=== PATIENT | female | born 1955 | race Caucasian/White ===

== ENCOUNTER → 2017-08-13 10:58 | Outpatient (CLI) | payer OTHER, SELFPAY ==
--- NOTE | 2017-08-13 11:03 | VDLE_ITS ---
Reason For Study: RT LEG PAIN RIGHT GSV is normal. CFV is compressible, spontaneous, phasic, competent and demonstrates normal augmentation. FV is compressible, spontaneous, phasic, competent and demonstrates normal augmentation. POP V is compressible, spontaneous, phasic, competent and demonstrates normal augmentation. T/P Trunk is compressible. PTV is compressible. RT PerV is compressible. Procedure Exam performed in department. A preliminary report was called and/or faxed to DR SANCHEZ. Interpretation Summary Deep veins of the right lower extremity are patent and compressible segmentally. There is no evidence of right lower extremity deep vein thrombosis. Valvular competence appears intact within the proximal deep venous system on the right . The right greater saphenous vein appears patent and compressible segmentally. Ordering Physician: Uma Sanchez Performed By: Thelma Walker, GALOCS, RVT
== END ==
PROVIDERS: Family Provider Internal Medicine; PCP Internal Medicine; Visit Provider Internal Medicine
DX: M79.604 Pain in right leg (principal)
CPT/HCPCS: 93971

== ENCOUNTER → 2017-10-12 10:06 | Outpatient (CLI) | payer OTHER, SELFPAY ==
--- NOTE | 2017-10-12 10:19 | MRI_ITS ---
STUDY: MRI RIGHT SHOULDER REASON FOR EXAM: Female, 61 years old. right anterior shoulder pain, pain started after doing push-ups, pain extends down arm TECHNIQUE: Standardized fat and water weighted pulse sequences were obtained in all 3 orthogonal planes. COMPARISON: None. FINDINGS: There is a complete tear of the supraspinatus tendon with proximal retraction of the torn tendon edge to the top of the humeral head. There is a 1.5 cm fluid-filled gap between the torn tendon edges. There is marked thickening of the supraspinatus tendon consistent with tendinosis. There is infraspinatus tendinosis with tendon thickening, but without a demonstrated tendon tear. There is subscapularis tendinosis with tendon thickening, but without a demonstrated tendon tear. Normal teres minor tendon. Normal supraspinatus muscle. Normal infraspinatus muscle. Normal subscapularis muscle. Normal teres minor muscle. There is a moderate volume joint effusion of the glenohumeral joint. There is a cortical erosion at the insertion of the infraspinatus tendon. Normal biceps labral complex. Normal intracapsular long biceps tendon. There are small tears of the posterior superior labrum and mid anterior labrum.. Normal capsulo- ligamentous complex. Normal rotator interval. There is mild osteoarthritis of the acromioclavicular articulation. There is a Type II morphology (curved), with a neutral orientation. There is fluid distention of the subacromial-subdeltoid bursa, which communicates with the glenohumeral joint, through a rotator cuff tear. Normal visualized coracohumeral and coracoacromial ligaments. Normal quadrilateral space. Normal axillary space. Normal deltoid muscle. Normal trapezius muscle. MRI/Upper Ext Joint Only(Routine) IMPRESSION: There is a complete tear of the supraspinatus tendon. There is supraspinatus, infraspinatus and subscapularis tendinosis. There is a moderate glenohumeral joint effusion. There are labral tears. Electronically Signed: Amber Mclean MD at 12:10 EDT , Service support ,
== END ==
PROVIDERS: Family Provider Internal Medicine; PCP Internal Medicine; Visit Provider Internal Medicine
DX: M25.511 Pain in right shoulder (principal)
CPT/HCPCS: 73221

== ENCOUNTER 2017-11-11 12:30 | Outpatient (RCR) | payer OTHER, SELFPAY ==
--- NOTE | 2017-08-24 14:00 | DT_ITS ---
This patient was seen during an EMR downtime August 23, 2017 - August 30, 2017. This patient may have a combination of paper and electronic documentation or all paper documentation. All documentation is viewable within the e-chart portion of [facility] for each patient visit.
--- NOTE | 2017-09-01 08:32 | HP.PTEVAL_ITS ---
Patient's Visit Information AMOR CUEVAS is a 61 year old F referred to Physical Therapy by Uma Sanchez with a diagnosis of R post leg pain. Date of Evaluation: 09/01/17 Physical Therapist: Sawyer Miller PT, - Visit Plan Frequency: 2-3x /Week Duration: 4-6 Weeks Plan: Foam roll, stick roll, core strengthening, B hip strengthening, balance/ proprio, R knee strengthening, bike, and HEP - Subjective Subjective: Pt reports she has R LE leg pain. PMHx includes a torn HS in R LE, and osteoporosis. Pt reports she has the most pain sitting for long periods of time, and with squatting. Pt denies T or N in LE's at this time. Pain is undescribeable. No imaging at this time. No sleep diff secondary to pain. Pt reports her major goal is to return to premorbid level of performing ADL's and work related activities. Pain is 4/10 currently, increases to 7/10 at worst. - Pain R post leg Pain Intensity (Out of 10): 4 Pain Intensity Range: 7 - Objective Neuro: B LE sensation is WNL to light touch. B achilles reflex= 2+/3. ROM: B LE 's are WNL. Pt is moderately limited with L/S ext ROM. MMT: B LE's 5/5 throughout. R knee flex was painful with testing. Palpation: Pt is sore with deep palpation to the post aspect of R knee. Special tests: No pos tests this date - Goals Goal 1:: I with HEP Goal Time Frame: 4-6 visits - Rehabilitation Potential Physical Therapy Diagnosis: Pt has pain in the posterior aspect of R knee secondary to deg changes in the R knee Rehabilitation Potential: Good - Anticipated Interventions Patient/Client Instruction: Educate patient on: Condition, Plan of Care For the Purpose of:: To improve self management Therapeutic Exercise to Include: Strength training, Balance training, Active ROM , Dynamic Lumbar Stabilization For the Purpose of:: To decrease pain, To improve muscle performance and motor function Cryotherapy (ice pack, ice massage): Yes For the Purpose of:: To decrease pain Thank you for the opportunity to evaluate your patient. For Medicare and Medicare HMO plans, please review the plan of care and approve it. It will need to be FAXED BACK to us at [phone] for Medicare purposes. Please let me know if there are questions or concerns regarding this plan of care. Physician Signature: Date:
--- NOTE | 2017-09-09 13:04 | HP.PTRE(2)_ITS ---
Uma Sanchez, It has been my pleasure to treat AMOR CUEVAS over the last 1 visits for R shoulder pain. Please see the progress note below for an update on the physical therapy plan of care! Plan Plan: Issue HEP of rot cuff strengthening and scap stab ex's Goals - Goals Goal 1:: I with HEP 1-2 visits Goal Time Frame: 1 Week Anticipated Interventions Patient/Client Instruction: Educate patient on: Condition, Plan of Care For the Purpose of:: To improve self management Therapeutic Exercise to Include: Strength training, Endurance training, Flexibilty training, Scapular Strength/Stabilization For the Purpose of:: To decrease pain, To increase ROM, To improve muscle performance and motor function Cryotherapy (ice pack, ice massage): Yes For the Purpose of:: To decrease pain Please do not hesitate to contact me at [phone] by phone or Fax: if you have questions or concerns regarding this new plan of care! Sincerely, Sawyer Miller, PT,
--- NOTE | 2018-02-09 12:58 | HP.PT.NRP ---
HP - Discharge Summary (1) - Patient Information AMOR CUEVAS was seen in my office for initial evaluation on 09/01/17. The following Plan of Care was established for this patient: Initial Frequency: 2-3x /Week Initial Duration: 4-6 Weeks - Anticipated Interventions Patient/Client Instruction: Educate patient on: Condition, Plan of Care For the Purpose of:: To improve self management Therapeutic Exercise to Include: Strength training, Balance training, Active ROM, Dynamic Lumbar Stabilization For the Purpose of:: To decrease pain, To improve muscle performance and motor function Cryotherapy (ice pack, ice massage): Yes For the Purpose of:: To decrease pain This patient was last seen in our office . Pertinent comments regarding their Physical therapy will appear below: Pt was treated for 3 PT visits for her LBP and shoulder pain. Pt has not returned through todays date, and is therefore discontinued at this time. At this point I will be discontinuing this patient from physical therapy. I would be happy to see this patient again in the future if found appropriate by the physician. Thank you! Sawyer Miller, PT,
--- NOTE | 2018-02-09 13:01 | HP.PT.NRP(2) ---
HP - Discharge Summary (2) - Patient Information AMOR CUEVAS was seen in my office for initial evaluation on 09/09/17. The following Plan of Care was established for this patient: Initial Frequency: 2x /Week Initial Duration: 1 Week Plan from Re-Evaluation: Hold chart open for 2-3 weeks - Anticipated Interventions Patient/Client Instruction: Educate patient on: Condition, Plan of Care For the Purpose of:: To improve self management Therapeutic Exercise to Include: Strength training, Endurance training, Flexibilty training, Scapular Strength/Stabilization For the Purpose of:: To decrease pain, To increase ROM, To improve muscle performance and motor function Cryotherapy (ice pack, ice massage): Yes For the Purpose of:: To decrease pain This patient was last seen in our office . Pertinent comments regarding their Physical therapy will appear below: Pt was treated for 3 PT visits for her LBP and shoulder pain. Pt has not returned through todays date, and is therefore discontinued at this time. At this point I will be discontinuing this patient from physical therapy. I would be happy to see this patient again in the future if found appropriate by the physician. Thank you! Sawyer Miller, PT,
== END 2017-11-11 19:00 | disposition home or self-care (01) ==
LOC: PT 12:30
PROVIDERS: Family Provider Internal Medicine; PCP Internal Medicine; Visit Provider Internal Medicine
DX: M79.604 Pain in right leg (principal)
CPT/HCPCS: 97110; 97162; 97530; G8978; G8979

== ENCOUNTER → 2018-08-09 | Outpatient (CLI) | payer SELFPAY ==
--- NOTE | 2018-08-09 14:30 | CT_ITS ---
STUDY: CARDIAC CALCIUM SCORING - CT CHEST REASON FOR EXAM: Female, 62 years old. HYPERLIPIDEMIA CALCIUM SCORING OVER READ RADIATION DOSAGE (If Supplied By Facility): CTDIvol = ( 12.19 ) mGy, DLP = ( 195.04 ) mGycm TECHNIQUE: Axial non-enhanced images were acquired through the heart for the sole purpose of measuring coronary artery calcium. Individualized dose optimization techniques were used for this CT. COMPARISON: None. FINDINGS: Visualized surrounding anatomy: Normal. Left Main Coronary Artery: 0 Left Anterior Descending Artery: 3.1 Left Circumflex Artery: 0 Right Coronary Artery: 0 Other: 0 Total Calcium Score: 3.1 CT/Limited Chest CT w/CCTA IMPRESSION: A Calcium Score of 3.1 places the patient in the approximate 59 percentile, based on the [employer] data calculator. Please go to: www.griffiths-nhlbi.org/Calcium/input.aspx , for a description of the calculator. Electronically Signed: Cooper Neil, at 6:38 EDT Tel , Service support ,
[2018-08-09 14:38] VITALS: BP 103/60; PULSE 59; RESP 16; O2SAT 99; BMI 20.6
--- NOTE | 2018-08-09 17:39 | CA.SCORE ---
Calcium Scoring Date of Study:: 08/09/18 Coronary Calcium Scoring: High-resolution Computed Tomographic imaging of the chest was performed on 08/09/2018 with particular attention paid to the coronary arteries. Images from the examination were analyzed for the presence and extent of coronary artery calcification , using coronary calcium quantification software. The patient tolerated the procedure well and there were no complications. The results of the coronary calcification analysis are provided below. - Findings Left Main (LM): 0 Left Anterior Descending (LAD): 3.18 Left Circumflex (LCX): 0 Right Coronary Artery (RCA): 0 Total Agatston Score: 3.18 Percentile Rankin - 50% of people of the same gender/similar age had the same/lower scores - Conclusion Calcium Scoring Interpretation: Calcium Score Interpretation 0 No identifiable atherosclerotic plaque. Very low cardiovascular disease risk. <5% chance of presence coronary artery disease A Negative Examination 1-10 Minimal Plaque burden. Significant coronary artery disease very unlikely. 11-100 Mild plaque burden. Likely mild or minimal coronary atherosclerosis. 101-400 Moderate plaque burden Moderate non-obstructive coronary artery disease highly likely. Over 400 Extensive plaque burden. High likelihood of at least one significant coronary stenosis (>50% diameter) Calcium Score: 1 -10 Significant coronary artery disease very unlikely - Continue cardiovascular risk factor evaluation care as deemed appropriate.
== END | disposition home or self-care (01) ==
LOC: CT 14:28
PROVIDERS: Family Provider Internal Medicine; PCP Internal Medicine; Referring Provider Internal Medicine; Visit Provider Internal Medicine
DX: E78.5 Hyperlipidemia, unspecified (principal)
CPT/HCPCS: 75571; 76380

== ENCOUNTER 2018-10-15 07:40 | Emergency (ER) | payer OTHER, SELFPAY ==
[2018-08-09 14:38] VITALS: BMI 20.6
[2018-10-15 07:41] VITALS: BP 148/93; PULSE 78; RESP 18; TEMP 36.6; O2SAT 100; BMI 20.6
--- NOTE | 2018-10-15 08:06 | RAD_ITS ---
STUDY: X-RAY - RIGHT FOOT CLINICAL: Female, 62 years old. Fall with bruising on top of foot. TECHNIQUE: 3 view(s) of the foot. COMPARISON: None. FINDINGS: Normal talus, calcaneus, and tarsal bones. Normal visualized subtalar, talonavicular, calcaneocuboid, tarsal and tarsometatarsal articulations. Normal metatarsi. Normal metatarsophalangeal joint of the great toe. Normal tibial and fibular sesamoid bones. Normal interphalangeal joint of the great toe. Normal phalanges of the great toe. Normal second through fifth metatarsophalangeal joints. Normal interphalangeal joints and phalanges of the lesser toes. The soft tissue structures are unremarkable. RAD/Foot min 3 Views IMPRESSION: No evidence of acute osseous process. Electronically Signed: Claude Granados DO at 8:47 EDT , Service support ,
--- NOTE | 2018-10-15 08:10 | ED.DCSUM_ITS ---
- ER Visit Summary Date of Service: 10/15/18 Chief Complaint: Right lateral foot pain post injury History of Present Illness: The patient is a 62 F history of osteoporosis. Patient states that she was caring dinner downstairs last night at home she tripped on the last step and landed awkwardly on her right foot causing pain and then fell to the ground. Denies any other injuries. Ice her foot last night is taken NSAIDs. But today is more pain and swelling and difficulty walking. She denies any ankle knee or hip pain. She did not hit her head denies other injuries. She is never had any surgery to her right ankle and the only foot surgery she has a still a distal phalanx of the toe. Physical Examination: Well-appearing female vital signs are stable and afebrile. HEENT exam is unremarkable. Neck is nontender. Lungs clear to auscultation bilaterally. Heart regular rate and rhythm no murmur. Chest wall nontender. Abdomen soft nontender. Pelvic girdle intact. Moving all 4 extremities. Neurovascularly intact. Both upper extremities have full range of motion, no rmal motor strength and sensation. Left lower extremities unremarkable. Her right hip, knee and ankle are nontender nonswollen. Her right lateral foot is mildly tender and swollen. Bruised. She is able to dorsi plantar flexion. Right foot neurovascular intact with normal DP pulse. Intact sensation. The right lateral foot is tender and swollen. No gross bony deformity. Test Results: Right foot x-ray 3 views shows no acute fracture or dislocation. Read by myself. Emergency Department Course and Treatment: X-ray of the right foot will be obtained. She has no other injuries. The ankle is completely nontender nonswollen with normal dorsi and plantar flexion. Repeat exam patient is doing well at 0 8:50 AM. She denied her over x- ray results. They were instructed that she is not improving to follow-up. Treatment Plan: Ice and elevate. Increase weightbearing as tolerated. Motrin for pain and swelling. Follow-up if not improving. Disposition: Discharge Impression: Acute fall Acute right foot sprain and contusion This note was generated with [employer] dictation software. It may contain incorrect words, spelling, and punctuation that were not noted in review of the chart prior to signing ED Disposition - Plan for ED Patient: Referrals: Uma Sanchez MD [Primary Care Provider] -
--- NOTE | 2018-10-15 08:53 | ED.DEP ---
ED Disposition - Plan for ED Patient: Disposition: Home or Assisted Living Instructions: Sprain Foot Referrals: Uma Sanchez MD [Primary Care Provider] - As Needed Zaki Feldman DPM [STAFF PHYSICIAN] - 10-14 Days if not better Additional Instructions: Ice and elevate right foot decrease pain and swelling. Motrin for pain and swelling. Increase weightbearing as tolerated. Follow-up with a violent crimes detective or local orthopedic doctor if not improving.
== END 2018-10-15 08:58 | disposition home or self-care (01) ==
PROVIDERS: Emergency Provider Emergency Medicine; Family Provider Internal Medicine; PCP Internal Medicine
DX: S93.601A Unspecified sprain of right foot, initial encounter (principal); S90.31XA Contusion of right foot, initial encounter; W01.0XXA Fall on same level from slipping, tripping and stumbling without subsequent striking against object, initial encounter; Y93.9 Activity, unspecified; Y92.9 Unspecified place or not applicable; M81.0 Age-related osteoporosis without current pathological fracture; Z85.41 Personal history of malignant neoplasm of cervix uteri
CPT/HCPCS: 73630; 99282

== ENCOUNTER → 2018-10-31 | Outpatient (CLI) | payer OTHER, SELFPAY ==
[2018-10-15 07:41] VITALS: BMI 20.6
--- NOTE | 2018-10-31 16:20 | RAD_ITS ---
STUDY: X-RAY - RIGHT ANKLE REASON FOR EXAM: Female, 62 years old. Trauma 2 weeks ago TECHNIQUE: 3 view(s) of the ankle. COMPARISON: None. FINDINGS: There is a possible fracture of the anterior calcaneal process, visualized with difficulty. There is a small ossicle along the posterior tibial malleolus, likely unfused. Otherwise the bones of the ankle are intact and located. Soft tissues are normal. RAD/Ankle min 3 Views IMPRESSION: Presumed fracture of the anterior calcaneal process, recommend confirmation with CT. Electronically Signed: Nanda Rosa, at 18:24 EDT Tel , Service support ,
--- NOTE | 2018-10-31 16:20 | RAD_ITS ---
STUDY: X-RAY - RIGHT FOOT CLINICAL: Female, 62 years old. Trauma TECHNIQUE: 3 view(s) of the foot. COMPARISON: 15 October 2018 FINDINGS: There is a subacute fracture of the anterior talar process with now approximately 3 mm displacement of the fracture fragment from the donor site. Remainder of the bones of the foot are intact and located. There is an unfused ossicle at the posterior tibial tuberosity. Soft tissues are unremarkable. Appearance is concordant with recent imaging at the time of the original injury. RAD/Foot min 3 Views IMPRESSION: 1. Subacute minimally displaced anterior talar process fracture. Orthopedic referral is advised. Electronically Signed: Nanda Rosa, at 17:29 EDT Tel , Service support ,
== END | disposition home or self-care (01) ==
LOC: MTRAD 16:19
PROVIDERS: Family Provider Internal Medicine; PCP Internal Medicine; Referring Provider Internal Medicine; Visit Provider Internal Medicine
DX: S93.401A Sprain of unspecified ligament of right ankle, initial encounter (principal)
CPT/HCPCS: 73610; 73630

== ENCOUNTER → 2018-12-05 13:00 | Outpatient (CLI) | payer OTHER, SELFPAY ==
[2018-12-05 13:16] VITALS: BP 156/80; PULSE 70; RESP 16; TEMP 36.4; O2SAT 100; BMI 20.5
[2018-12-05] MEDS: Zoledronic Acid 5 MG 100 ML 300 MG IV (13:24)
== END ==
PROVIDERS: Family Provider Internal Medicine; PCP Internal Medicine; Referring Provider Internal Medicine; Visit Provider Internal Medicine
DX: M81.0 Age-related osteoporosis without current pathological fracture (principal); M84.375A Stress fracture, left foot, initial encounter for fracture
CPT/HCPCS: 96365; A4216; J3489

== ENCOUNTER → 2019-03-07 10:47 | Outpatient (CLI) | payer OTHER, SELFPAY ==
[2018-12-05 13:16] VITALS: BMI 20.5
--- NOTE | 2019-03-07 10:58 | BD_ITS ---
STUDY: DUAL ENERGY X-RAY ABSORPTIOMETRY / DXA REASON FOR EXAM: Female, 63 years old. Early menopause. Loss of height. TECHNIQUE: Bone Mineral Density (BMD) measurements of lumbar spine and bilateral hips were obtained. COMPARISON: Comparison is made with prior examination dated March 02, 2017. FINDINGS: Lumbar Spine (L1-L4): g/cm2 (0.880) / T-score (-2.4) / Z-score (-0.9) Findings are suggestive of osteopenia with a high fracture risk. Left Femur Total: g/cm2 (0.853) / T-score (-1.2) / Z-score (-0.1) Left Femoral Neck: g/cm2 (0.826) / T-score (-1.5) / Z-score (-0.1) Right Femur Total: g/cm2 (0.790) / T-score (-1.7) / Z-score (-0.6) Right Femoral Neck: g/cm2 (0.763) / T-score (-2.0) / Z-score (-0.6) The T-Scores on the most recent prior examination were: Lumbar Spine (L1-L4): There has been improvement of bone density since the previous examination. Left Femur Total: which represents an improvement of 4%. Right Femur Total: which represents a worsening of 0.1%. BD/Dexa Bone Density Study IMPRESSION: The patient is considered osteopenic as outlined below according to World [employer] Organization (WHO) criteria with a high fracture risk. There has been improvement of bone density since the previous examination. Reference Information: The T-score is the number of standard deviations above or below the standard which is normal for young adults at their peak bone mineral density. The World Health Organization (WHO) interprets the T-scores as follows: Above -1 Normal bone density Between -1 and -2.5 Osteopenia Equal to / or below -2.5 Osteoporosis As a practical clinical guideline, osteopenia may be graded as follows: Mild -1 through -1.5 Moderate -1.6 through -2.0 Severe -2.1 through -2.4 The Z-score is the number of standard deviations above or below age-matched controls. A Z-score of less than -1.5 would be considered abnormal. References: 1. NIH Osteoporosis and Related Bone Diseases http://www.osteo.org 2. International Society for Clinical Densitometry http://www.iscd.org 3. National Osteoporosis Foundation http://www.nof.org Electronically Signed: David Abreu, at 15:43 EST , Service support ,
== END ==
PROVIDERS: Family Provider Internal Medicine; PCP Internal Medicine; Referring Provider Internal Medicine; Visit Provider Internal Medicine
DX: M81.0 Age-related osteoporosis without current pathological fracture (principal)
CPT/HCPCS: 77080

== ENCOUNTER → 2019-12-06 13:00 | Outpatient (CLI) | payer OTHER, SELFPAY ==
[2018-12-05 13:16] VITALS: BMI 20.5
[2019-12-06 13:17] VITALS: BP 138/85; PULSE 81; RESP 16; TEMP 35.9; O2SAT 100; BMI 21.1
[2019-12-06] MEDS: Zoledronic Acid 5 MG 100 ML 100 MG IV (13:33)
[2019-12-06] MEDS: 0.9% NaCl IVPB Med Flush (250 mL) 15 ML IV (13:34)
[2019-12-06] MEDS: 0.9% NaCl Peripheral Flush Adult/Peds IV (13:35)
[2019-12-06 14:50] VITALS: BP 132/85; PULSE 76; RESP 16; TEMP 36.1; O2SAT 100
== END ==
PROVIDERS: PCP Internal Medicine; Referring Provider Internal Medicine; Visit Provider Internal Medicine
DX: M81.0 Age-related osteoporosis without current pathological fracture (principal)
CPT/HCPCS: 96365; J7050; A4216; J3489

== ENCOUNTER → 2020-12-05 12:57 | Outpatient (CLI) | payer MEDICARE, BC, SELFPAY ==
[2019-12-06 13:17] VITALS: BMI 21.1
[2020-12-05] MEDS: Zoledronic Acid 5 MG 100 ML 100 MG IV (13:38)
[2020-12-05 13:39] VITALS: BP 156/67; PULSE 93; RESP 16; TEMP 35.9; O2SAT 100; BMI 21.2
[2020-12-05] MEDS: 0.9% NaCl Peripheral Flush Adult/Peds IV (13:39)
[2020-12-05 14:40] VITALS: BP 116/67; PULSE 74; RESP 16; TEMP 35.8; O2SAT 100
== END ==
PROVIDERS: PCP Internal Medicine; Referring Provider Internal Medicine; Visit Provider Internal Medicine
DX: M81.0 Age-related osteoporosis without current pathological fracture (principal)
CPT/HCPCS: 96365; A4216; J3489

== ENCOUNTER → 2020-12-10 17:00 | Outpatient (CLI) | payer MEDICARE, BC, SELFPAY ==
--- NOTE | 2020-12-10 17:13 | MRI_ITS ---
STUDY: MRI RIGHT KNEE REASON FOR EXAM: Female, 64 years old. Internal derangement. Pain. TECHNIQUE: Standardized fat and water weighted pulse sequences were obtained in all 3 orthogonal planes. COMPARISON: X-ray dated 08/08/2020. FINDINGS: Grade 3/4 cartilage loss at the patellar apex extending into the medial facet. Lateral compartment articular cartilage preserved. Medial compartment grade 3 cartilage loss with chondral fissure at the femoral condyle (sagittal image 32 series 3). No acute fracture, dislocation or cortical destruction. Bone marrow edema/contusion at the weightbearing portion of the medial compartment (sagittal images 18 and 19 series 4). Lateral meniscus intact. Medial meniscus posterior horn degenerative tearing (sagittal images 15 through 17 series 4 and coronal image 13 series 6). Tiny cyst at the origin of the medial meniscus anterior root ligament (sagittal image 14 series 4). Small volume joint effusion. No popliteal cyst. Mild anterior swelling. Normal medial collateral ligamentous complex (MCL). Normal distal semimembranosus, gracilis and semitendinosus tendons. Normal proximal tibiofibular articulation. Normal lateral collateral (fibular) ligament. Normal popliteus tendon. Normal biceps femoris tendon. Normal anterior cruciate ligament (ACL). Normal posterior cruciate ligament (PCL). Normal medial and lateral patellar retinaculum. Quadriceps tendon enthesophyte. Normal patellar tendon. Normal Hoffa''s fat pad. MRI/Lower Ext Joint Only (Routine) IMPRESSION: Medial meniscus degenerative posterior horn tear with tiny anterior root ligament cyst Moderate/severe medial facet and patellar apex cartilage loss Moderate medial compartment cartilage loss with chondral fissure and bone marrow edema Small volume joint effusion with mild anterior swelling Electronically Signed: Loyd Gillespie DO at 12:07 EDT Tel , Service support ,
== END ==
PROVIDERS: PCP Internal Medicine; Referring Provider Internal Medicine; Visit Provider Internal Medicine
DX: M23.91 Unspecified internal derangement of right knee (principal)
CPT/HCPCS: 73721

== ENCOUNTER → 2021-03-18 13:51 | Outpatient (CLI) | payer MEDICARE, BC, SELFPAY ==
--- NOTE | 2021-03-18 13:55 | RAD_ITS ---
STUDY: X-RAY - LEFT ANKLE REASON FOR EXAM: Female, 65 years old. left ankle pain after missing a stair TECHNIQUE: 3 view(s) of the ankle. COMPARISON: None. FINDINGS: Tiny avulsion fracture is present at the undersurface of the lateral malleolus with a minimally displaced crescentic bony fragment. No additional fractures are present. Normal visualized distal tibia and fibula. Normal medial malleolus. Normal tibiotalar articulation and ankle mortise. Normal visualized talus and calcaneus. The visualized subtalar, talonavicular, calcaneocuboid and tarsal articulations are normal. The soft tissue structures are unremarkable. RAD/Ankle min 3 Views IMPRESSION: 1. Tiny avulsion fracture at the undersurface of the lateral malleolus Electronically Signed: Ravinder Murphy MD at 16:07 EST , Service support ,
== END ==
PROVIDERS: PCP Internal Medicine; Referring Provider Internal Medicine; Visit Provider Internal Medicine
DX: M25.572 Pain in left ankle and joints of left foot (principal)
CPT/HCPCS: 73610

== ENCOUNTER 2021-03-26 09:50 | Outpatient (CLI) | payer MEDICARE, BC, SELFPAY ==
--- NOTE | 2021-03-26 09:59 | BD_ITS ---
STUDY: DUAL ENERGY X-RAY ABSORPTIOMETRY / DXA REASON FOR EXAM: Female, 65 years old. [id number]. The patient is postmenopausal. TECHNIQUE: Bone Mineral Density (BMD) measurements of lumbar spine and bilateral hips were obtained. COMPARISON: Comparison is made with prior study dated 03/07/2019. FINDINGS: Lumbar Spine (L1-L4): g/cm2 (0.857) / T-score (-1.7) / Z-score (0.1) Findings are suggestive of osteopenia with a moderate fracture risk. Left Femur Total: g/cm2 (0.799) / T-score (-1.2) / Z-score (0.1) Left Femoral Neck: g/cm2 (0.709) / T-score (-1.3) / Z-score (0.3) Right Femur Total: g/cm2 (0.731) / T-score (-1.7) / Z-score (-0.4) Right Femoral Neck: g/cm2 (0.632) / T-score (-2.0) / Z-score (-0.4) The T-Scores on the most recent prior examination were: Lumbar Spine (L1-L4): There has been improvement of bone density since the previous examination. Left Femur Total: which represents an improvement of 0.9%. Right Femur Total: which represents an improvement of 0.1%. BD/Dexa Bone Density Study IMPRESSION: The patient is considered osteopenic as outlined below according to World [employer] Organization (WHO) criteria with a moderate fracture risk. There has been improvement of bone density since the previous examination. Reference Information: The T-score is the number of standard deviations above or below the standard which is normal for young adults at their peak bone mineral density. The World Health Organization (WHO) interprets the T-scores as follows: Above -1 Normal bone density Between -1 and -2.5 Osteopenia Equal to / or below -2.5 Osteoporosis As a practical clinical guideline, osteopenia may be graded as follows: Mild -1 through -1.5 Moderate -1.6 through -2.0 Severe -2.1 through -2.4 The Z-score is the number of standard deviations above or below age-matched controls. A Z-score of less than -1.5 would be considered abnormal. References: 1. NIH Osteoporosis and Related Bone Diseases www osteo.org 2. International Society for Clinical Densitometry www iscd.org 3. National Osteoporosis Foundation www nof.org Electronically Signed: David Abreu MD at 8:58 EST , Service support ,
== END 2021-03-26 23:59 | disposition short-term general hospital (02) ==
LOC: OPBD 09:51
PROVIDERS: PCP Internal Medicine; Visit Provider Internal Medicine
DX: Z78.0 Asymptomatic menopausal state (principal)
CPT/HCPCS: 77080

== ENCOUNTER 2021-05-08 08:58 | Outpatient (CLI) | payer MEDICARE, BC, SELFPAY ==
[2021-05-08 10:08] LABS: Albumin, Serum 3.9 g/dL (3.2-5.0)
== END 2021-05-08 23:59 | disposition home or self-care (01) ==
LOC: LAB 09:07
PROVIDERS: PCP Internal Medicine; Referring Provider Physician Assistant Surgical; Visit Provider Physician Assistant Surgical
DX: Z01.818 Encounter for other preprocedural examination (principal)
CPT/HCPCS: 36415; 82040

== ENCOUNTER → 2021-12-05 | Outpatient (CLI) | payer MEDICARE, BC, SELFPAY ==
[2021-12-05 10:15] VITALS: BP 137/74; PULSE 78; RESP 16; TEMP 36.2; O2SAT 100; BMI 21.2
[2021-12-05] MEDS: Zoledronic Acid 5 MG 100 ML 100 MG IV (10:24)
[2021-12-05] MEDS: 0.9% NaCl IVPB Med Flush (250 mL) 15 ML IV (10:24)
[2021-12-05] MEDS: 0.9% NaCl Peripheral Flush Adult/Peds IV (10:24)
[2021-12-05 11:35] VITALS: BP 121/64; PULSE 72
== END | disposition home or self-care (01) ==
LOC: MEDOUTP 09:56
PROVIDERS: PCP Internal Medicine; Referring Provider Internal Medicine; Visit Provider Internal Medicine
DX: M81.0 Age-related osteoporosis without current pathological fracture (principal)
CPT/HCPCS: 96365; J7050; A4216; J3489

== ENCOUNTER → 2021-12-15 | Outpatient (CLI) | payer MEDICARE, BC, SELFPAY ==
--- NOTE | 2021-12-15 16:08 | RAD_ITS ---
EXAM: XR RIGHT HAND, 2 VIEWS CLINICAL INDICATION: THUMB PAIN TECHNIQUE: Frontal and lateral views of the right hand. This report was created using [employer] report generation technology. COMPARISON: None. FINDINGS: BONES/JOINTS: Osteoarthritic changes of the PIP and DIP joints of the second through fifth fingers. No acute fracture. No subluxation. Normal alignment. No sclerotic or destructive changes observed. SOFT TISSUES: Unremarkable. No soft tissue swelling or gas. No radiopaque foreign body. OTHER FINDINGS: Normal thumb. RAD/Hand 2 Views IMPRESSION: 1. Normal thumb. 2. Osteoarthritic changes of the PIP and DIP joints of the second through fifth fingers. Electronically Signed: Santiago Navas MD at 3:12 EDT ,
== END | disposition home or self-care (01) ==
LOC: MTRAD 16:07
PROVIDERS: PCP Internal Medicine; Referring Provider Internal Medicine; Visit Provider Internal Medicine
DX: M19.041 Primary osteoarthritis, right hand (principal)
CPT/HCPCS: 73120

== ENCOUNTER → 2022-01-20 | Outpatient (CLI) | payer MEDICARE, BC, SELFPAY ==
--- NOTE | 2022-01-20 12:50 | CDU_ITS ---
Reason For Study: STENOSIS Rt. Velocities/BP Lt. Velocities/BP Prox CCA 91.9/18.2 cm/sec. Prox CCA 99.7/21.2 cm/sec. Mid CCA 56.3/11.0 cm/sec. Mid CCA 83.3/15.7 cm/sec. Dist CCA 59.1/16.6 cm/sec. Dist CCA 66.8/15.7 cm/sec. Prox ICA 78.1/23.3 cm/sec. Prox ICA 58.2/17.6 cm/sec. Mid ICA 100.1/29.9 cm/sec. Mid ICA 76.1/16.6 cm/sec. Dist ICA 87.2/30.5 cm/sec. Dist ICA 88.8/32.1 cm/sec. Rt. ICA/CCA = 1.7. Lt. ICA/CCA = 0.7. Prox ECA 122.1/10.1 cm/sec. Prox ECA 79.6/8.4 cm/sec. Rt. Vert. 23.9/6.1 cm/sec. Lt. Vert. 45.9/11.0 cm/sec. Right Extracranial There is heterogeneous, irregular atherosclerotic plaque noted in the right common carotid artery. There is heterogeneous, irregular atherosclerotic plaque noted in the right internal carotid artery. There is heterogeneous, irregular atherosclerotic plaque noted in the right external carotid artery. Antegrade flow is noted in the right vertebral artery. Left Extracranial There is homogeneous, smooth atherosclerotic plaque noted in the left common carotid artery. There is heterogeneous, irregular atherosclerotic plaque noted in the left internal carotid artery. There is intimal thickening but no significant atherosclerotic plaque noted in the left external carotid artery. Antegrade flow is noted in the left vertebral artery. Procedure Carotid Duplex 46002. This is a Carotid Duplex examination using B-mode, color flow and specral Doppler. The exam was diagnostic. Exam performed in department. VL/Carotid Duplex Ultrasound Interpretation Summary Mild (<50%) stenosis right extracranial internal carotid. Mild (<50%) stenosis left extracranial internal carotid. Flow within the vertebral arteries is antegrade bilaterally. Ordering Physician: Uma Sanchez Referring Physician: Uma Sanchez Performed By: Naif Chapman RVT
== END | disposition home or self-care (01) ==
LOC: CVS 12:48
PROVIDERS: PCP Internal Medicine; Referring Provider Internal Medicine; Visit Provider Internal Medicine
DX: I65.23 Occlusion and stenosis of bilateral carotid arteries (principal)
CPT/HCPCS: 93880

== ENCOUNTER 2022-12-07 13:01 | Outpatient (CLI) | payer MEDICARE, BC, SELFPAY ==
[2022-12-07 13:06] VITALS: BP 160/98; RESP 16
[2022-12-07] MEDS: 0.9% NaCl Peripheral Flush Adult/Peds IV (13:16)
[2022-12-07] MEDS: Zoledronic Acid 5 MG 100 ML 100 MG IV (13:25)
[2022-12-07 14:25] VITALS: BP 138/95; PULSE 73; RESP 16; TEMP 36.2; O2SAT 99
== END 2022-12-07 13:02 | disposition home or self-care (01) ==
LOC: MEDOUTP 13:02
PROVIDERS: PCP Internal Medicine; Referring Provider Internal Medicine; Visit Provider Internal Medicine
DX: M81.8 Other osteoporosis without current pathological fracture (principal)
CPT/HCPCS: 96365; A4216; J3489

== ENCOUNTER → 2023-07-30 | Outpatient (CLI) | payer MEDICARE, BC, SELFPAY ==
--- NOTE | 2023-07-30 15:36 | MRI_ITS ---
HISTORY: foot pain, right, LATERAL, POSSIBLE METATARSAL FX Date: 07/30/2023 4:07 PM Technique: MRI examination obtained with multiplanar multi echo imaging. Location: RIGHT foot Contrast: No contrast administered Comparison: Plain film examination of 07/23/2023 FINDINGS: BONY ELEMENTS: 1. Bony elements have normal alignment. No displaced fractures identified. No marrow edema in the forefoot. 2. There is evidence however of marrow edema involving the cuboid, , anterior process of the calcaneus, portion of the plantar surface of the base of the 3rd metatarsal, and to a lesser extent the anterior process of talus. JOINT SPACES: 1. Normal appearance of alignment of bony elements and joint spaces. No joint effusion DEEP MUSCULAR COMPARTMENTS: 1. Deep muscular compartments are well-maintained. NEURAL VASCULAR COMPARTMENTS: 1. Normal appearance of the neural vascular compartments SUBCUTANEOUS SOFT TISSUES. 1. Normal appearance of visualized obtained soft tissues. No soft tissue stranding, fluid. No masses or abscess accumulation. MRI/Lower Ext/No Jt/w/o IMPRESSION: 1. No evidence of displaced fracture. 2. Marrow edema/bone bruising noted in the cuboid, anterior process of calcaneus, and a portion of the base of the 3rd metatarsal. 3. Joint spaces are maintained. Bony elements of the forefoot have normal appearance. Electronically Signed: Mehdi Brennan MD at 0:13 EDT ,
== END | disposition home or self-care (01) ==
LOC: MRI 15:32
PROVIDERS: PCP Internal Medicine; Referring Provider Internal Medicine; Visit Provider Internal Medicine
DX: M79.671 Pain in right foot (principal)
CPT/HCPCS: 73718

== ENCOUNTER → 2023-09-06 | Outpatient (CLI) | payer MEDICARE, BC, SELFPAY ==
--- NOTE | 2023-09-06 12:53 | CT_ITS ---
STUDY: CT CHEST WITH CONTRAST REASON FOR EXAM: Female, 67 years old. COUGH RADIATION DOSAGE (If Supplied By Facility): CTDIvol = ( 9.14 ) mGy, DLP = ( 198.48 ) mGycm TECHNIQUE: Transaxial imaging was performed following intravenous administration of IV 100mL Isovue-300. Multiplanar coronal and sagittal images were reformatted. Individualized dose optimization techniques were used for this CT. COMPARISON: No relevant priors. FINDINGS: CHEST Bilateral breast prostheses. Mild degree of increased markings at the lung apices slightly worse on the right side suggestive of bilateral apical scarring. No acute infiltration or mass lesion is seen. Hyperinflation. There is no demonstrated pleural abnormality. There are mild calcifications of the coronary arteries. Normal mediastinum. Normal hilar regions. Normal unenhanced pulmonary arteries. There is mild degree of atherosclerotic calcification of the aortic arch. There are degenerative changes of the thoracic spine. There is no demonstrated abnormality of the visualized upper abdomen. CT/Chest WITH Contrast IMPRESSION: There is evidence of a apical scarring. No acute abnormality is seen. Electronically Signed: David Abreu MD at 8:18 EDT ,
[2023-09-06 13:38] LABS: CREATININE FINGERSTICK < 1.0 mg/dL (0.55-1.02); EGFR FINGERSTICK > 60.0000 mL/min (>60)
== END | disposition home or self-care (01) ==
LOC: CT 12:48
PROVIDERS: PCP Internal Medicine; Referring Provider Internal Medicine; Visit Provider Internal Medicine
DX: R05.9 Cough, unspecified (principal)
CPT/HCPCS: 71260; Q9967; A4216

== ENCOUNTER → 2023-11-16 | Outpatient (CLI) | payer MEDICARE, BC, SELFPAY ==
--- NOTE | 2023-11-16 09:55 | CDU_ITS ---
Reason For Study: CAROTID STENOSIS Rt. Velocities/BP Lt. Velocities/BP Prox CCA 70.7/14.2 cm/sec. Prox CCA 96.5/19.2 cm/sec. Mid CCA 68.3/16.7 cm/sec. Mid CCA 89.1/24.1 cm/sec. Dist CCA 62.1/14.2 cm/sec. Dist CCA 74.4/21.6 cm/sec. Prox ICA 52.8/16.0 cm/sec. Prox ICA 44.0/14.7 cm/sec. Mid ICA 76.1/23.2 cm/sec. Mid ICA 71.4/19.5 cm/sec. Dist ICA 79.9/26.1 cm/sec. Dist ICA 91.3/31.8 cm/sec. Rt. ICA/CCA = 79.9/68.3=1.2. Lt. ICA/CCA = 91.3/89.1=1.0. Prox ECA 99.0/6.9 cm/sec. Prox ECA 69.5/9.3 cm/sec. Rt. Vert. 43.1/11.9 cm/sec. Lt. Vert. 63.9/15.7 cm/sec. Right Extracranial There is intimal thickening but no significant atherosclerotic plaque noted in the right common carotid artery. There is heterogeneous, irregular atherosclerotic plaque noted in the right internal carotid artery. There is intimal thickening but no significant atherosclerotic plaque noted in the right external carotid artery. Antegrade flow is noted in the right vertebral artery. Left Extracranial There is heterogeneous, smooth atherosclerotic plaque noted in the left common carotid artery. There is heterogeneous, irregular atherosclerotic plaque noted in the left internal carotid artery. There is heterogeneous, smooth atherosclerotic plaque noted in the left external carotid artery. Antegrade flow is noted in the left vertebral artery. Procedure Carotid Duplex 63171. This is a Carotid Duplex examination using B-mode, color flow and specral Doppler. Exam performed in department. VL/Carotid Duplex Ultrasound Interpretation Summary Mild (<50%) stenosis right extracranial internal carotid. Mild (<50%) stenosis left extracranial internal carotid. Patent and antegrade vertebrals bilaterally. Ordering Physician: Uma Sanchez Referring Physician: Uma Sanchez Performed By: Gay Brown, IAN, RVT
--- NOTE | 2023-11-16 11:00 | BD_ITS ---
STUDY: DUAL ENERGY X-RAY ABSORPTIOMETRY / DXA REASON FOR EXAM: Female, 67 years old. [id number] TECHNIQUE: Bone Mineral Density (BMD) measurements of lumbar spine and bilateral hips were obtained. COMPARISON: Comparison is made with prior study dated March 26, 2021. FINDINGS: Lumbar Spine (L1-L4): g/cm2 (0.843) / T-score (-1.9) / Z-score (0.2) Findings are suggestive of osteopenia with a moderate fracture risk. Left Femur Total: g/cm2 (0.791) / T-score (-1.2) / Z-score (0.2) Left Femoral Neck: g/cm2 (0.693) / T-score (-1.4) / Z-score (0.3) Right Femur Total: g/cm2 (0.725) / T-score (-1.8) / Z-score (-0.3) Right Femoral Neck: g/cm2 (0.617) / T-score (-2.1) / Z-score (-0.4) The T-Scores on the most recent prior examination were: Lumbar Spine (L1-L4): There has been worsening of bone density since the previous examination. Left Femur Total: which represents a worsening of 0.9%. Right Femur Total: which represents a worsening of 0.8%. BD/Dexa Bone Density Study IMPRESSION: The patient is considered osteopenic as outlined below according to [employer] [place] Organization (WHO) criteria with a high fracture risk. There has been worsening of bone density since the previous examination. Reference Information: The T-score is the number of standard deviations above or below the standard which is normal for young adults at their peak bone mineral density. The World Health Organization (WHO) interprets the T-scores as follows: Above -1 Normal bone density Between -1 and -2.5 Osteopenia Equal to / or below -2.5 Osteoporosis As a practical clinical guideline, osteopenia may be graded as follows: Mild -1 through -1.5 Moderate -1.6 through -2.0 Severe -2.1 through -2.4 The Z-score is the number of standard deviations above or below age-matched controls. A Z-score of less than -1.5 would be considered abnormal. References: 1. NIH Osteoporosis and Related Bone Diseases www osteo.org 2. International Society for Clinical Densitometry www iscd.org 3. National Osteoporosis Foundation www nof.org Electronically Signed: David Abreu MD at 10:12 EDT ,
== END | disposition home or self-care (01) ==
PROVIDERS: PCP Internal Medicine; Referring Provider Internal Medicine; Visit Provider Internal Medicine
DX: I65.23 Occlusion and stenosis of bilateral carotid arteries (principal); Z78.0 Asymptomatic menopausal state
CPT/HCPCS: 77080; 93880

== ENCOUNTER 2023-12-06 10:24 | Outpatient (CLI) | payer MEDICARE, BC, SELFPAY ==
[2023-12-06 10:39] VITALS: BP 145/66; PULSE 77; RESP 16; TEMP 36.2; O2SAT 99; BMI 21.3
[2023-12-06] MEDS: Zoledronic Acid 5 MG 100 ML 100 MG IV (11:04)
[2023-12-06] MEDS: 0.9% NaCl IVPB Med Flush (250 mL) 15 ML IV (11:04)
[2023-12-06 12:22] VITALS: BP 152/86; PULSE 68; RESP 16; TEMP 36.6; O2SAT 99
== END 2023-12-06 23:59 | disposition home or self-care (01) ==
LOC: MEDOUTP 10:24
PROVIDERS: PCP Internal Medicine; Referring Provider Internal Medicine; Visit Provider Internal Medicine
DX: M81.0 Age-related osteoporosis without current pathological fracture (principal)
CPT/HCPCS: 96365; J7050; A4216; J3489

== ENCOUNTER 2024-05-21 13:24 | Emergency (ER) | payer MEDICARE, BC, SELFPAY ==
[2024-05-21 13:25] VITALS: BP 178/162; PULSE 91; RESP 18; TEMP 36.4; O2SAT 100; BMI 22.3
--- NOTE | 2024-05-21 14:00 | EKG12_ITS ---
Test Reason : GENERAL Blood Pressure : */* mmHG Vent. Rate : 72 BPM Atrial Rate : 72 BPM P-R Int : 160 ms QRS Dur : 94 ms QT Int : 384 ms P-R-T Axes : 71 42 71 degrees QTcB Int : 420 ms Normal sinus rhythm Normal ECG Confirmed by Santiago Robertson ([id number]), video tape editor SAGAR ISRAEL ([id number]) on 05/23/2024 10:44:28 AM Referred By: Confirmed By: Santiago Robertson
--- NOTE | 2024-05-21 14:00 | EX.ED.DYSGE1 ---
HPI History of Present Illness Chief Complaint: Hypertension Narrative Narrative: 68-year-old female, no history of hypertension, not on medication presents with elevated blood pressure that she noticed today. She does relate history that on Wednesday she was seen by her primary care provider Dr. Sanchez, and she had elevated blood pressure. She remains asymptomatic with it. On , 3 days ago, she was getting a cortisone injection as she had slightly elevated blood pressure as well. She received the injection and had not had 1 in 7 years for her right rotator cuff problem. The following day, she felt flushed, and took her blood pressure. She has noticed a steady increase in her blood pressure where it was elevated at 170 systolic. She denies any chest pain or shortness of breath, no headache, no difficulty with urination. While she was at home, they noticed that her blood pressure was elevated at 190. She thought maybe there was something wrong with her blood pressure machine and she changed the batteries. She went to the pharmacy as well, and took it there and it was elevated above 200. They waited a while and the pharmacist took her blood pressure and it was noted to be 220 systolic. Once again she remained asymptomatic but came to the emergency department for evaluation of her elevated blood pressure. Of note, she states that she has been under some stress recently with the recent of her mother, but no excessive stress today that she noted. [facility] Medical History no medical history Home Medications ?Medication ?Instructions ?Recorded ?Last Taken ?Type cholecalciferol (vitamin D3) 25 2,000 unit PO DAILY 06/07/15 Unknown History mcg (1,000 unit) tablet (Vitamin D3) biotin 1 mg capsule 1 mg PO DAILY 12/06/23 Unknown History ezetimibe 10 mg tablet 10 mg PO DAILY 12/06/23 Unknown History valacyclovir 1 gram tablet 1,000 mg PO BID PRN cold sores 12/06/23 Unknown History amlodipine 5 mg tablet 5 mg PO DAILY #30 tabs 05/21/24 Unknown Rx Allergy/AdvReac Type Severity Reaction Status Date / Time No Known Allergies Allergy Verified 05/21/24 13:29 Social History Smoking Status: Never smoker ROS ROS ED ROS Narrative Elevated blood pressure. Denies chest pain, shortness of breath, problems with urination, or other symptoms. No blurry vision. EXAM Physical Exam Narrative Exam Narrative: Afebrile. Vital signs noted. Nontoxic-appearing. Cardiovascular examination reveals a regular rate and rhythm. Lungs are clear to auscultation bilaterally. Abdomen is soft, nontender, with normal active bowel sounds. No guarding or rebound. Neurological examination is nonfocal and nonlateralizing. Psychiatric examination reveals no evidence of anxiety. Const Vital Signs: 05/21/24 13:25 05/21/24 13:32 05/21/24 14:27 Temperature 97.5 F L Temperature Source Oral Pulse Rate 91 75 Respiratory Rate 18 18 Respiratory Effort Normal Non-Labored Respiratory Pattern Normal Blood Pressure 178/162 H 166/95 H Blood Pressure Mean 167 118 Pulse Ox 100 99 Oxygen Delivery Method Room Air Room Air 05/21/24 15:13 Temperature Temperature Source Pulse Rate Respiratory Rate Respiratory Effort Respiratory Pattern Blood Pressure 176/93 H Blood Pressure Mean 120 Pulse Ox Oxygen Delivery Method MDM MDM MDM Narrative Medical decision making narrative: Essentially, patient is having asymptomatic hypertension. Her blood pressure is below 200 systolic and is currently 180. I will obtain an EKG as well as basic laboratory work including CBC and CMP. I do not feel she needs a troponin as it is high-sensitivity and she is not having chest pain. Pulse ox is 100% on room air without evidence of hypoxia. I doubt pulmonary embolism and I do not feel that chest x-ray is indicated. EKG was obtained and interpreted by myself independently as normal sinus rhythm at 72 bpm without ectopy or acute ST changes. No STEMI. I reviewed her laboratory work and she has normal white count of 8.1 with hemoglobin 14.3, hematocrit 41.5, platelet count 331. Sodium is slightly low at 131 with chloride 94. I do not feel IV fluids are indicated as she has normal BUN of 19 and creatinine 0.71. ALT slightly elevated at 37 which I think is nonspecific. Upon repeat examination, her blood pressure is 176/93 without intervention. I do feel that she can be discharged to follow-up with her primary care provider. She was given her first dose of amlodipine 5 mg orally here as she remains asymptomatic. I wrote her prescription to take daily for the next 30 days. I reviewed return instructions with her. Disposition is discharged home in stable condition. History & Record Review Discussion w/independent historian: Patient Lab Data Attestation: I reviewed the patient's lab results. Labs: Laboratory Results - last 24 hr 05/21/24 13:15 WBC 8.1 RBC 4.41 Hgb 14.3 Hct 41.5 MCV 94.1 MCH 32.4 H MCHC 34.5 RDW Std Deviation 46.6 H RDW Coeff of Heavenly 13.5 Plt Count 331 MPV 10.2 Immature Gran % (Auto) 0.400 Neut % (Auto) 68.2 Lymph % (Auto) 22.3 [place] % (Auto) 8.4 Eos % (Auto) 0.5 Baso % (Auto) 0.2 Absolute Neuts (auto) 5.5 Absolute Lymphs (auto) 1.81 Nucleated RBC % 0 Sodium 131 L Potassium 3.8 Chloride Direct 94 L Carbon Dioxide 21.2 L Anion Gap 16 H BUN 19 Creatinine 0.71 Estim Creat Clear Calc 59.72 Est GFR (MDRD) Non-Af 92 BUN/Creatinine Ratio 26.7 H Glucose 123 H Calcium 9.6 Total Bilirubin 0.56 AST 26 ALT 37 H Alkaline Phosphatase 59 Total Protein 8.1 Albumin 4.9 H Globulin 3.2 Albumin/Globulin Ratio 1.6 Discharge Plan Triage Chief Complaint: Hypertension ED Provider: Lane Cornelius Dx/Rx/DC Orders Clinical Impression: Elevated blood pressure reading, Hyponatremia Instructions: ED Hypertension New Begin Treatment, ED Hyponatremia Prescriptions: New amlodipine 5 mg tablet 5 mg PO DAILY Qty: 30 0RF No Action cholecalciferol (vitamin D3) [Vitamin D3] 1,000 UNIT tablet 2,000 unit PO DAILY ezetimibe 10 mg tablet 10 mg PO DAILY biotin 1 mg capsule 1 mg PO DAILY valacyclovir 1 gram tablet 1,000 mg PO BID PRN (Reason: cold sores) Primary Care Provider: Uma Sanchez Referrals: Uma Sanchez MD [Primary Care Provider] - 3-5 Days if not improving Activity Restrictions/Additional Instructions: Take your blood pressure once in the morning and once in the evening. Keep a log of your blood pressure for your primary care provider. Return with chest pain, shortness of breath, headache, dizziness, consistent Ly elevated blood pressure over 200 systolic new or worsening symptoms. Print Language: Kittitian Disposition Disposition: Home, Self Care
[2024-05-21 14:23] LABS: Absolute Lymphocyte Count 1.81 X10^3/uL (0.83-4.51); Absolute Neutrophil Count 5.5 X10^3/uL (2.0-7.7); Basophil# 0.02 X10^3/uL; Basophil% 0.2 % (0-1); Eosinophil# 0.04 X10^3/uL; Eosinophils% 0.5 % (0-5); Hematocrit 41.5 % (37-47); Hemoglobin 14.3 g/dL (12.0-15.0); Lymphocyte # 1.81 X10^3/ul (0.83-4.51); Lymphocyte % 22.3 % (19-41); Mean Corp Hgb Conc 34.5 g/dL (32-36); Mean Corpuscular Hgb 32.4 pg (27.0-32.0); Mean Corpuscular Volume 94.1 fL (81-99); Mean Platelet Vol. 10.2 fl (6.2-12.0); Monocyte# 0.68 X10^3/uL; Monocyte% 8.4 % (0-10); NRBC Flagged by Analyzer 0 % (0-5); Neutrophil # 5.52 X10^3/uL (2.7-7.7); Neutrophil % 68.2 % (47-70); Platelet Count 331 K/mm3 (150-450); RBC Distribution Width CV 13.5 % (11.6-14.6); RBC Distribution Width SD 46.6 fl (35.1-43.9); Red Blood Count 4.41 M/mm3 (4.2-5.4); White Blood Count 8.1 K/mm3 (4.4-11.0)
[2024-05-21 14:27] VITALS: BP 166/95; PULSE 75; RESP 18; O2SAT 99
[2024-05-21 15:08] LABS: ALB/GLOB Ratio 1.6 RATIO (0.9-2.4); AST(SGOT) 26 U/L (<=31); Alanine Aminotransfer ALT/SGPT 37 U/L (<=34); Albumin, Serum 4.9 g/dL (3.4-4.8); Alkaline Phosphatase 59 U/L (35-104); Anion Gap 16 (5-15); BUN 19 mg/dL (4-19); BUN/Creat Ratio 26.7 RATIO (10-20); Calcium 9.6 mg/dL (7.6-11.0); Carbon Dioxide 21.2 mmol/L (22.0-29.0); Chloride 94 mmol/L (96-108); Creatinine, Serum 0.71 mg/dL (0.70-1.20); EST Glomerular Filtration Rate 92 (>60); Estimated Creatinine Clearance 59.72 ml/min (50-250); Globulin 3.2 g/dL (2.2-4.2); Glucose 123 mg/dL (70-99); Potassium 3.8 mmol/L (3.3-5.1); Protein, Total 8.1 g/dL (5.9-8.4); Sodium Level 131 mmol/L (133-145); Total Bilirubin 0.56 mg/dL (0.00-1.30)
[2024-05-21 15:13] VITALS: BP 176/93
[2024-05-21] MEDS: amLODIPine 5 MG Tablet PO (15:33)
[2024-05-21 15:44] VITALS: BP 175/91; PULSE 78; RESP 16; TEMP 36.6; O2SAT 99
== END 2024-05-21 15:45 | disposition home or self-care (01) ==
PROVIDERS: Emergency Provider Emergency Medicine; PCP Internal Medicine; Visit Provider Emergency Medicine
DX: R03.0 Elevated blood-pressure reading, without diagnosis of hypertension (principal); E87.1 Hypo-osmolality and hyponatremia; Z79.899 Other long term (current) drug therapy
CPT/HCPCS: 80053; 85025; 93005; 99285

== ENCOUNTER → 2024-11-22 | Outpatient (CLI) | payer MEDICARE, BC, SELFPAY ==
--- NOTE | 2024-11-22 11:23 | SP.MBSS_ITS ---
Modified Barium Swallow Patient Information Study Date: 11/22/24 Study Time: 10:30 Direct Billable Minutes: 150 Total Minutes procedure & reportin Diagnosis: dysphagia, unspecified R13.10 Referring Physician: Loyd Al Reason for Referral: Patient is a 68-year-old female with a history of chronic cough. She was referred for a Modified Barium Swallow Study (MBSS) to objectively assess swallow function. The patient reports that the cough occurs both with and without oral intake, is present throughout the day, and has significantly impacted her quality of life. She has been evaluated by multiple physicians, including primary care, ENT, and internal medicine, and has trialed medications such as proton pump inhibitors and allergy treatments (per patient report) without improvement. Dentition: WNL Mental Status: WNL Respiratory Status: Oxygenating on Room Air Penetration-Aspiration Scale Penetration-Aspiration Scale: OBJECTIVE ASSESSMENT OF SWALLOW FUNCTION (QUANTITATIVE ? PER TRIAL): PENETRATION / ASPIRATION SCALE (SANCHEZ): 1 = does not enter airway 2 = enters airway/above vocal folds/ejected 3 = enters airway/above vocal folds/not ejected 4 = enters airway/contacts vocal folds/ejected 5 = enters airway/contacts vocal folds/not ejected 6 = enters airway/below vocal folds/ejected 7 = enters airway/below vocal folds/not ejected despite effort 8 = enters airway/below vocal folds/no effort VIDEOFLOROSCOPIC SCALE SCORE (SANCHEZ): Grade I = aspiration of material that has penetrated into the laryngeal vestibule, intact cough reflex Grade II = aspiration < 10 % of the bolus, intact cough reflex Grade III = aspiration of < 10 % of the bolus, reduced cough reflex or aspiration of > 10 % of the bolus, intact cough reflex Grade IV = aspiration of > 10 % of the bolus, reduced cough reflex Penetration-Aspiration Scale Score Thin Liquid via teaspoon: Result: 1= does not enter airway Thin Liquid via teaspoon Trial 2: Result: 1= does not enter airway Thin Liquid via small single sip: cup: Result: 1= does not enter airway Thin Liquid via small single sip: cup Trial 2: Result: 1= does not enter airway Thin Liquid via small single sip: cup Trial 3: Result: 1= does not enter airway [place] Thick Liquid via small single sip: cup: Result: 1= does not enter airway Pudding: Result: 1= does not enter airway Cookie: Result: 1= does not enter airway Barium Tablet: Result: 1= does not enter airway Oral Phase Labial Seal: No Labial Escape Tongue Control During Bolus Hold: Cohesive bolus between tongue to palatal seal Bolus Preparation/Mastication: Timely and efficient chewing and mashing Bolus Transport/Lingual Motion: Delayed initiation of tongue motion Oral Residue: Complete oral clearance Pharyngeal Phase Initiation of Pharyngeal Swallow: Bolus head in pyriforms Soft Palate Elevation: No bolus between soft palate and pharyngeal wall Laryngeal Elevation: Comp. Superior move thyroid cart w/comp. apprx arytenoid cart-epig pet Anterior Hyoid Excursion: Complete anterior movement Epiglottic Movement: Complete inversion Laryngeal Vestibule Closure at Height of Swallow: Complete; no air/contrast in laryngeal vestibule Pharyngeal Stripping Wave: Present - complete Pharyngoesophageal Segment Opening: Complete distension and complete duration; no obstruction of flow Tongue Base Retraction: No contrast between tongue base and posterior pharyngeal wall Pharyngeal Residue: Trace residue within or on pharyngeal structures Esophageal Phase Esophageal Clearance: Esophageal retention w/ retrograde flow through pharyngoesophageal seg Diagnosis/Impression Diagnosis: Esophageal dysphagia R13.14 .: The patient presents with esophageal dysphagia characterized by reduced UES opening and residue within the pyriform sinuses following the swallow. She is at high risk for post-prandial aspiration of residual material and/or reflux. Esophageal motility is impaired, with retention and retrograde flow observed even with thin liquids, and more pronounced with thicker consistencies such as pudding. Retention was noted in the upper and mid-esophagus with minimal improvement following a liquid wash, and retrograde flow through the UES was also observed. In addition, the patient demonstrated difficulty with AP transit, as the barium tablet required multiple sips of water to clear. Overall, these findings are highly suggestive of esophageal reflux, which may be contributing to the patient?s chronic cough. A follow-up with gastroenterology is recommended for further evaluation and management. Recommendations Diet: Regular Textures and Thin Liquids Compensatory Strategies: Small Bites, Small Sips, Slow Rate, Multiple Swallows, Alternate bites/solids and sips/liquids, Sitting upright and Remain sitting upri ght for 30 minutes after PO intake Recommend Repeat Modified Barium Swallow: TBD Need for Skilled Speech Therapy Services: No Recommended Referrals: GI Consult Education Completed: 1. Described result of evaluation. and 2. Pt understands evaluation & agrees with goals and treatment plan. Status Active ST Patient: Active Contact Information [facility] Speech Therapy:: Sheri Baumann M.A., CCC-BLISTER PACKAGING MACHINE OPERATOR Speech-Language Pathologist [facility] [phone] FAX [phone] [email or web address] [address]
== END | disposition home or self-care (01) ==
PROVIDERS: PCP Internal Medicine; Referring Provider Otolaryngology; Visit Provider Otolaryngology
DX: R05.3 Chronic cough (principal)
CPT/HCPCS: 74230; 92611

== ENCOUNTER 2024-12-08 10:06 | Outpatient (CLI) | payer MEDICARE, BC, SELFPAY ==
[2024-12-08 10:22] VITALS: BP 129/70; PULSE 69; RESP 16; TEMP 36.4; O2SAT 100; BMI 21.9
== END 2024-12-08 23:59 | disposition home or self-care (01) ==
LOC: MEDOUTP 10:07
PROVIDERS: PCP Internal Medicine; Referring Provider Internal Medicine; Visit Provider Internal Medicine
DX: M81.0 Age-related osteoporosis without current pathological fracture (principal)
CPT/HCPCS: 96365; A4216; J3489

== ENCOUNTER 2024-12-13 08:30 | Outpatient (RCR) | payer MEDICARE, BC, SELFPAY ==
--- NOTE | 2024-12-08 11:28 | ST ---
[facility] Speech Pathology [address] [place] [address] Modified Barium Swallow Study MR#: [id number] Acct: [id number] Name: AMOR CUEVAS Rep #: [id number] : 1955 68 From: Sheri Bauamnn Modified Barium Swallow Patient Information Study Date: 11/22/24 Study Time: 10:30 Direct Billable Minutes: 150 Total Minutes procedure & reportin Diagnosis: dysphagia, unspecified R13.10 Referring Physician: Loyd Al Reason for Referral: Patient is a 68-year-old female with a history of chronic cough. She was referred for a Modified Barium Swallow Study (MBSS) to objectively assess swallow function. The patient reports that the cough occurs both with and without oral intake, is present throughout the day, and has significantly impacted her quality of life. She has been evaluated by multiple physicians, including primary care, ENT, and internal medicine, and has trialed medications such as proton pump inhibitors and allergy treatments (per patient report) without improvement. Dentition: WNL Mental Status: WNL Respiratory Status: Oxygenating on Room Air Penetration-Aspiration Scale Penetration-Aspiration Scale: OBJECTIVE ASSESSMENT OF SWALLOW FUNCTION (QUANTITATIVE ? PER TRIAL): PENETRATION / ASPIRATION SCALE (SANCHEZ): 1 = does not enter airway 2 = enters airway/above vocal folds/ejected 3 = enters airway/above vocal folds/not ejected 4 = enters airway/contacts vocal folds/ejected 5 = enters airway/contacts vocal folds/not ejected 6 = enters airway/below vocal folds/ejected 7 = enters airway/below vocal folds/not ejected despite effort 8 = enters airway/below vocal folds/no effort VIDEOFLOROSCOPIC SCALE SCORE (SANCHEZ): Grade I = aspiration of material that has penetrated into the laryngeal vestibule, intact cough reflex Grade II = aspiration < 10 % of the bolus, intact cough reflex Grade III = aspiration of < 10 % of the bolus, reduced cough reflex or aspiration of > 10 % of the bolus, intact cough reflex Grade IV = aspiration of > 10 % of the bolus, reduced cough reflex Penetration-Aspiration Scale Score Thin Liquid via teaspoon: Result: 1= does not enter airway Thin Liquid via teaspoon Trial 2: Result: 1= does not enter airway Thin Liquid via small single sip: cup: Result: 1= does not enter airway Thin Liquid via small single sip: cup Trial 2: Result: 1= does not enter airway Thin Liquid via small single sip: cup Trial 3: Result: 1= does not enter airway [place] Thick Liquid via small single sip: cup: Result: 1= does not enter airway Pudding: Result: 1= does not enter airway Cookie: Result: 1= does not enter airway Barium Tablet: Result: 1= does not enter airway Oral Phase Labial Seal: No Labial Escape Tongue Control During Bolus Hold: Cohesive bolus between tongue to palatal seal Bolus Preparation/Mastication: Timely and efficient chewing and mashing Bolus Transport/Lingual Motion: Delayed initiation of tongue motion Oral Residue: Complete oral clearance Pharyngeal Phase Initiation of Pharyngeal Swallow: Bolus head in pyriforms Soft Palate Elevation: No bolus between soft palate and pharyngeal wall Laryngeal Elevation: Comp. Superior move thyroid cart w/comp. apprx arytenoid cart-epig pet Anterior Hyoid Excursion: Complete anterior movement Epiglottic Movement: Complete inversion Laryngeal Vestibule Closure at Height of Swallow: Complete; no air/contrast in laryngeal vestibule Pharyngeal Stripping Wave: Present - complete Pharyngoesophageal Segment Opening: Complete distension and complete duration; no obstruction of flow Tongue Base Retraction: No contrast between tongue base and posterior pharyngeal wall Pharyngeal Residue: Trace residue within or on pharyngeal structures Esophageal Phase Esophageal Clearance: Esophageal retention w/ retrograde flow through pharyngoesophageal seg Diagnosis/Impression Diagnosis: Esophageal dysphagia R13.14 The patient presents with esophageal dysphagia characterized by reduced UES opening and residue within the pyriform sinuses following the swallow. She is at high risk for post-prandial aspiration of residual material and/or reflux. Esophageal motility is impaired, with retention and retrograde flow observed even with thin liquids, and more pronounced with thicker consistencies such as pudding. Retention was noted in the upper and mid-esophagus with minimal improvement following a liquid wash, and retrograde flow through the UES was also observed. In addition, the patient demonstrated difficulty with AP transit, as the barium tablet required multiple sips of water to clear. Overall, these findings are highly suggestive of esophageal reflux, which may be contributing to the patient?s chronic cough. A follow-up with gastroenterology is recommended for further evaluation and management. Recommendations Diet: Regular Textures and Thin Liquids Compensatory Strategies: Small Bites, Small Sips, Slow Rate, Multiple Swallows, Alternate bites/solids and sips/liquids, Sitting upright and Remain sitting upright for 30 minutes after PO intake Recommend Repeat Modified Barium Swallow: TBD Need for Skilled Speech Therapy Services: No Recommended Referrals: GI Consult Education Completed: 1. Described result of evaluation. and 2. Pt understands evaluation & agrees with goals and treatment plan. Status Active ST Patient: Active Contact Information [facility] Speech Therapy:: Sheri Baumann M.A., CCC-TOOL MAINTENANCE TECHNICIAN Speech-Language Pathologist [facility] [phone] FAX [phone] [email or web address] [address] [place] [address] ?[place] [address] 11/22/24 9335 <Electronically signed by Sheri Baumann>
--- NOTE | 2024-12-12 15:59 | HP.SP.EVAL ---
Visit History Visit Info Date of Eval: 12/08/24 Today is Visit #: 1 Fire Supervisor: LORAINE Murphy Attending Doctor: Referring Doctor: Reason for Referral: DYSPHAGIA/RX HERE Medical Diagnosis: Esophageal Dysphagia Other Relevant Medical History/Diagnoses/Surgery: AMOR CUEVAS is a 68 year old female who [facility] for evaluation of esophageal dysphagia from her ENT, Dr. Loyd Al. She presented to the evaluation independently and served as historian. She reports recently being scoped by ENT and they reportedly stated she had right sided weakness. The report was not available today for ST to review -- will request records. Pt reporting her symptoms have been consistent for the past year and a half. She has been experiencing a chronic cough at all times which has not improved or gotten worse. Pt reporting that she was informed on her MBSS results from 11/22/2024 (SEE BELOW) but she forgets what was said. ST presented and reviewed with Pt after obtaining case history. She is on a regular diet and reports coughing while eating and more frequently 30 minutes after eating. Pt stating that her PCP prescribed Prilosec and Zyrtec to rule out reflux and allergies, which did not help with the coughing. Amor reporting not feeling reflux prior to or after meds. ST educated it is possible to have silent reflux that we don't feel. She has a GI appointment scheduled for 01/09/2025. Pt reporting that water does not help when she is coughing. Pt had bone cancer when she was 27 years old and underwent a surgery and when she was extubated it injured her vocal cords. No observed voice abnormalities during conversation. She asked if this would be affecting her swallowing. ST educated that since her surgery was 41 years ago, it is unlikely the injury would be affecting her now and not at the time of the injury. PMH is significant for: Bone cancer and Osteoporosis. Smoking Status: Never smoker Diagnosis Diagnosis: Esophageal Dysphagia Pain Is pain an issue with your current prescribed condition?: No Personal Preferred language: Angolan Patient Allergies Allergies Allergies: Allergies No Known Allergies Allergy (Verified 12/08/24 10:20) Subjective Dysphagia Symptoms Reported Symptoms/Problems with: Coughing Current Diet Solids Current Diet: Regular Current Diet Liquids Current Liquids: Thin Comments Education: -: ST reviewed MBSS results with client for the majority of the session, which revealed impaired esophageal motility including retention, retrograde flow, and reduced opening of UES. ST educated safe swallowing strategies with Pt including small bites/drinks, alternate bites and drinks, slow rate of intake, and sitting upright for 30-60 min after PO intake. Discussed importance of her attending her GI appointment. Objective Dysphagia Impact Impact on Safety & Functioning: Risk for Aspiration Diet Texture Recommendations Solids: Regular (Level 7) Liquids: Thin (Level 0) Safety Saftey Precautions/Swallowing Recommendations (Check all that Apply): Reduce Distractions, Upright Position at Least 30 Minutes After Meals, Small Sips & Bites when Eating, Multiple Swallows and Alternate Liquids & Solids Results Swallowing Within Normal Limits: No Additional: Esophageal Dysphagia Modified Barium Results Hx If Applicable Enter into a NOTE MBS Results (from prior exam): 12/08/24 11:28 Speech Therapy by Isatu Aguilar [facility] Speech Pathology [address] [place] [address] Modified Barium Swallow Study MR#: [id number] Acct: [id number] Name: AMOR CUEVAS Rep #: [id number] : 1955 68 From: Sheri Baumann Modified Barium Swallow Patient Information Study Date: 11/22/24 Study Time: 10:30 Direct Billable Minutes: 150 Total Minutes procedure & reportin Diagnosis: dysphagia, unspecified R13.10 Referring Physician: Loyd Al Reason for Referral: Patient is a 68-year-old female with a history of chronic cough. She was referred for a Modified Barium Swallow Study (MBSS) to objectively assess swallow function. The patient reports that the cough occurs both with and without oral intake, is present throughout the day, and has significantly impacted her quality of life. She has been evaluated by multiple physicians, including primary care, ENT, and internal medicine, and has trialed medications such as proton pump inhibitors and allergy treatments (per patient report) without improvement. Dentition: WNL Mental Status: WNL Respiratory Status: Oxygenating on Room Air Penetration-Aspiration Scale Penetration-Aspiration Scale: OBJECTIVE ASSESSMENT OF SWALLOW FUNCTION (QUANTITATIVE ? PER TRIAL): PENETRATION / ASPIRATION SCALE (SANCHEZ): 1 = does not enter airway 2 = enters airway/above vocal folds/ejected 3 = enters airway/above vocal folds/not ejected 4 = enters airway/contacts vocal folds/ejected 5 = enters airway/contacts vocal folds/not ejected 6 = enters airway/below vocal folds/ejected 7 = enters airway/below vocal folds/not ejected despite effort 8 = enters airway/below vocal folds/no effort VIDEOFLOROSCOPIC SCALE SCORE (SANCHEZ): Grade I = aspiration of material that has penetrated into the laryngeal vestibule, intact cough reflex Grade II = aspiration < 10 % of the bolus, intact cough reflex Grade III = aspiration of < 10 % of the bolus, reduced cough reflex or aspiration of > 10 % of the bolus, intact cough reflex Grade IV = aspiration of > 10 % of the bolus, reduced cough reflex Penetration-Aspiration Scale Score Thin Liquid via teaspoon: Result: 1= does not enter airway Thin Liquid via teaspoon Trial 2: Result: 1= does not enter airway Thin Liquid via small single sip: cup: Result: 1= does not enter airway Thin Liquid via small single sip: cup Trial 2: Result: 1= does not enter airway Thin Liquid via small single sip: cup Trial 3: Result: 1= does not enter airway [place] Thick Liquid via small single sip: cup: Result: 1= does not enter airway Pudding: Result: 1= does not enter airway Cookie: Result: 1= does not enter airway Barium Tablet: Result: 1= does not enter airway Oral Phase Labial Seal: No Labial Escape Tongue Control During Bolus Hold: Cohesive bolus between tongue to palatal seal Bolus Preparation/Mastication: Timely and efficient chewing and mashing Bolus Transport/Lingual Motion: Delayed initiation of tongue motion Oral Residue: Complete oral clearance Pharyngeal Phase Initiation of Pharyngeal Swallow: Bolus head in pyriforms Soft Palate Elevation: No bolus between soft palate and pharyngeal wall Laryngeal Elevation: Comp. Superior move thyroid cart w/comp. apprx arytenoid cart-epig pet Anterior Hyoid Excursion: Complete anterior movement Epiglottic Movement: Complete inversion Laryngeal Vestibule Closure at Height of Swallow: Complete; no air/contrast in laryngeal vestibule Pharyngeal Stripping Wave: Present - complete Pharyngoesophageal Segment Opening: Complete distension and complete duration; no obstruction of flow Tongue Base Retraction: No contrast between tongue base and posterior pharyngeal wall Pharyngeal Residue: Trace residue within or on pharyngeal structures Esophageal Phase Esophageal Clearance: Esophageal retention w/ retrograde flow through pharyngoesophageal seg Diagnosis/Impression Diagnosis: Esophageal dysphagia R13.14 The patient presents with esophageal dysphagia characterized by reduced UES opening and residue within the pyriform sinuses following the swallow. She is at high risk for post-prandial aspiration of residual material and/or reflux. Esophageal motility is impaired, with retention and retrograde flow observed even with thin liquids, and more pronounced with thicker consistencies such as pudding. Retention was noted in the upper and mid-esophagus with minimal improvement following a liquid wash, and retrograde flow through the UES was also observed. In addition, the patient demonstrated difficulty with AP transit, as the barium tablet required multiple sips of water to clear. Overall, these findings are highly suggestive of esophageal reflux, which may be contributing to the patient?s chronic cough. A follow-up with gastroenterology is recommended for further evaluation and management. Recommendations Diet: Regular Textures and Thin Liquids Compensatory Strategies: Small Bites, Small Sips, Slow Rate, Multiple Swallows, Alternate bites/solids and sips/liquids, Sitting upright and Remain sitting upright for 30 minutes after PO intake Recommend Repeat Modified Barium Swallow: TBD Need for Skilled Speech Therapy Services: No Recommended Referrals: GI Consult Education Completed: 1. Described result of evaluation. and 2. Pt understands evaluation & agrees with goals and treatment plan. Status Active ST Patient: Active Contact Information [facility] Speech Therapy:: Sheri Baumann M.A., CCC-RECREATIONAL RESORT MANAGER Speech-Language Pathologist [facility] [phone] FAX [phone] [email or web address] ?[place] [address] 11/22/24 7530 < - END OF NOTE Swallowing Performance Scale Swallowing Performance Scale Swallowing Performance Scale Result: 3 Mild Reference: Neuro-QoL instrument Radiation Oncology Patient Plan Plan Plan: Will rx Pt for skilled outpatient tx to address deficits in oropharyngeal dysphagia. Pt would benefit from training and education re: process of diet tolerance checks, meal analysis, safe swallowing strategies, and swallowing exercises to aid in oropharyngeal strengthening. Without skilled intervention, Pt is at risk for consuming a restrictive diet putting him at risk for aspiration pneumonia and atrophy of laryngeal musculature. Recommendations Treatment Warranted: Yes Treatment Warranted: Dysphagia Comment: - Recommending a FEES pending Pt's evaluation with GI. Suggested Pt attempt medical management with GI and if she is still having difficulty then we can complete a FEES to objectively assess the swallow. Progress Prognosis: Good Frequency Frequency: Monthly Duration: 3 Months Patient/Family Goal Patient/Family Goal: To reduce coughing and choking Goals that are Established Determination:: Goals will be added/modified as deemed necessary and appropriate. Therapy will be discontinued when results of re-evaluation indicate therapy is no longer needed or lack of progress has been documented. Goal #1-5 Goal #1: Amor will show understanding of safe swallowing strategies (i.e., small bites/drinks, alternate bites and drinks, slow rate of intake, sitting upright for 60 min after PO intake) via self report of implementation at home across three monthly follow up appointments with 100% acc independently. Goal #2: Amor will show understanding of pharyngoesophageal strengthening exercises (i.e., Shaker and Ledy) via self report of implementation at home across three monthly follow up appointments with 100% acc independently. Goal #3: Amor will participate in meal analysis to determine carryover of safe swallowing strategies with 90% of her meal in at least two of three monthly follow up appointments. Education Patient has Indicated that the Following Identified Educational Needs: None The Patient has indicated that they have no educational or learning abilities that may effect their care.: Yes Patient Instruction Patient Education: Diagnosis Person Taught: Patient
--- NOTE | 2025-03-21 10:50 | HP.SP.DC ---
ST Discharge Summary Discharged: Discharge: AMOR CUEVAS is a 69 year old female who presented to [facility] on 12/08/24 following a dx of esophageal dysphagia after participation in a modified barium swallow study on 11/22/2024. Pt attended initial evaluation with goals created to target safe swallowing strategies, pharyngoesophageal strengthening exercises, and meal analysis. We also discussed Pt participating in a fiberoptic endoscopic evaluation of swallow following her visits with GI if they felt it was necessary given Pt's report of globus sensation (however, suspect this may have been d/t esophageal retention). After evaluation, Pt participated in one follow up visit with additional visits after this being canceled. At Pt's one follow up session, we completed a meal analysis where it was observed Pt palate smashing her food d/t her reporting dental issues. Unclear if this would be contributing to esophageal motility issues. Pt being discharged from speech therapy caseload on this date 03/21/2025 d/t Pt absence in attending additional treatment visits. Per chart review, Pt has been followed by GI and participated in an EGD and esophageal motility study. Thank you for allowing me to participate in the care of your patient. Will reevaluate at Pt?s request following script from physician.
== END 2024-12-13 19:00 | disposition home or self-care (01) ==
LOC: SP 08:30
PROVIDERS: PCP Internal Medicine; Referring Provider Otolaryngology; Visit Provider Otolaryngology
DX: R13.14 Dysphagia, pharyngoesophageal phase (principal)
CPT/HCPCS: 92526; 92610

== ENCOUNTER 2025-01-29 05:27 | Day surgery (SDC) | payer MEDICARE, BC, SELFPAY ==
[2025-01-29 05:55] VITALS: BP 152/84; PULSE 80; RESP 14; TEMP 36.3; O2SAT 100; BMI 22.4
[2025-01-29] MEDS: Lactated Ringers 1,000 ML 15 ML IV (06:06)
--- NOTE | 2025-01-29 06:26 | PRE.ANES_ITS ---
ASA Classification* ASA Classification ASA Classification: 2 Assessment & Plan Anesthesia* Anesthesia Assessment Anesthesia Assessment: Discussed sedation and/or anesthesia options, risks, benefits, and alternatives with patient/parents/legal guardian/POA. Questions invited. The patient/parents/legal guardian/POA seems to understand and agrees to proceed with anesthesia plan. Reviewed the physical assessment, medical history, allergy history and patient home medications list prior to surgery/procedure/anesthetic and documented any changes. Performed airway and anesthesia risk assessments. Anesthesia Type Anesthesia Type: MAC History Source History Obtained from:: Patient and Chart Anesthesia Focused Assessment* Temperature: 97.4 F Pulse Rate: 80 Blood Pressure: 152/84 Respiratory Rate: 14 Pulse Ox: 100 Oxygen Delivery Method: Room Air Airway Assessment Mouth opens: >3 cm Mallampati Score: II Neck Range of motion (ROM): Full ROM Labs Anesthesia Preop lab: CBC WBC, (4.4-11.0) 8.1 K/mm3 05/21/24, 13:15 RBC, (4.2-5.4) 4.41 M/mm3 05/21/24, 13:15 Hgb, (12.0-15.0) 14.3 g/dL 05/21/24, 13:15 Hct, (37-47) 41.5 % 05/21/24, 13:15 Plt Count, (150-450) 331 K/mm3 05/21/24, 13:15 CHEMISTRY Potassium, (3.3-5.1) 3.8 mmol/L 05/21/24, 13:15 Sodium, (133-145) 131 mmol/L L 05/21/24, 13:15 BUN, (4-19) 19 mg/dL 05/21/24, 13:15 Creatinine, (0.70-1.20) 0.71 mg/dL 05/21/24, 13:15 Glucose, (70-99) 123 mg/dL H 05/21/24, 13:15 COAG Pre-Assessment Diagnosis/Proposed Procedure Planned Operative Procedure(s): EGD Anesthesia History Anesthesia History - parcel post delivery: Anesthesia History - parcel post delivery Hx Hospitalization No 01/24/25 12:24 Any Problems With Anesthesia Yes: NAUSEA 01/24/25 12:24 Cholinesterase deficiency No 01/24/25 12:24 You/Your Family Experience No 01/24/25 12:24 fever (hyperthermia) with Relationship Recent Exposure to Contagious No 01/29/25 05:55 Disease Does patient have nerve No 01/24/25 12:24 stimulator Patient instructed to have device shut off --Does patient have Pacemaker No 01/29/25 05:55 or ICD? When Was Last Pacemaker Check QUESTION #4 FULL TEXT: You/Your Family Experience fever (hyperthermia) with Anesthesia Last Oral Intake Last Oral intake: Last Oral Intake NPO since 21:30 01/29/25 05:55 Meds taken in AM with sips of No 01/29/25 05:55 water? Meds patient instructed to take am of surgery PONV PONV - parcel post delivery: PONV - parcel post delivery Female Yes 01/24/25 12:24 HX of Motion Sickness Yes 01/24/25 12:24 HX of N/V After Surgery No 01/24/25 12:24 Non-Smoker Yes 01/24/25 12:24 Duration of Surgery greater No 01/24/25 12:24 than 60 minutes Number of Risk Factors 3 01/24/25 12:24 PONV Score Moderate Risk 01/24/25 12:24 Height & Weight Height & Weight: Anesthesia: Height & Weight Height 5 ft 5 in 01/29/25 05:55 Weight: 61 kg 01/29/25 05:55 Body Mass Index (BMI) 22.4 01/29/25 05:55 Respiratory Assessment Respiratory Assessment - parcel post delivery: Respiratory Tract Infection Hx - parcel post delivery Hx Respiratory Tract Infection No 01/24/25 12:24 STOP Sleep Apnea STOP Sleep Apnea - parcel post delivery: STOP Sleep Apnea - parcel post delivery Hx Hypertension Yes: CONTROLLED ON MED 01/24/25 12:24 Hx Sleep Apnea No 01/24/25 12:24 CPAP BIPAP Do you snore loudly (louder No 01/24/25 12:24 than talking or can be heard Do you often feel tired/ No 01/24/25 12:24 fatigued/ sleepy during daytime? Has anyone observed you stop No 01/24/25 12:24 breathing during sleep? STOP Results Negative 01/24/25 12:24 QUESTION #5 FULL TEXT : Do you snore loudly (louder than talking or can be heard through closed doors)? Tobacco Use History Tobacco Use History - parcel post delivery: Tobacco Use History - parcel post delivery Tobacco Use Smoking Status Never smoker 01/24/25 12:24 Hx Tobacco Use No 01/24/25 12:24 Years Smoking Packs Smoked per Day Smoking Cessation Date was within the last 15 years Hx Smoking Cessation Date Hx Smoking Cessation Counseling Hematologic Medial History Hematologic Hx - parcel post delivery: Hematologic Medical Hx - computer science instructor Hx of Blood Transfusion No 01/24/25 12:24 Hx of Transfusion in last 3 No 01/24/25 12:24 Months Date of Last Transfusion (if within last 3 months) Ever experience any problems No 01/24/25 12:24 with transfusion(s)? Specify any problems Hx of Preganancy in last 3 No 01/24/25 12:24 Months Nurse Filling Out Transfusion VCHRISTIN 01/24/25 12:24 & Questions: Date: 01/24/25 01/24/25 12:24 Time: 12:26 01/24/25 12:24 Patient unable to answer at this time (ie. confused, unrespo /Reproduction History /Reproductive History - parcel post delivery: /Reproductive Hx- parcel post delivery Hx Now No 01/24/25 12:24 Gestational Age (in weeks): EDC: Hx Hx Para Hx Section SAB No 01/24/25 12:24 Does the father of the baby or his family experience fever w Father of the baby Malignant Hypertension history comment Active Medications Active Medications: Current Medications Generic Name Dose Route Start Last Admin Trade Name Freq PRN Reason Stop Dose Admin Lactated Ringer's 1,000 mls @ 15 mls/hr 01/29/25 05:45 01/29/25 06:06 IV 15 mls/hr .Q48H JUNE Administration PFSH Medical History (Updated 01/24/25 @ 12:24 by Maggi Lockwood) Wears contact lenses Wears glasses History of Clostridium difficile infection Post-menopausal Cancer Alcohol use History of steroid therapy Arthritis Seizures Difficulty swallowing Non-smoker Chronic cough History of edema Hypertension Home Medications Medication Instructions Recorded Last Taken Type cholecalciferol (vitamin D3) 25 2,000 unit PO DAILY Unknown History mcg (1,000 unit) tablet (Vitamin D3) biotin 1 mg capsule 1 mg PO DAILY 12/06/23 Unkno wn History ezetimibe 10 mg tablet 10 mg PO DAILY 12/06/23 Unkn own History valacyclovir 1 gram tablet 1,000 mg PO BID PRN cold so res 12/06/23 Unknown History enalapril 5 mg-hydrochlorothiazide 1 tab PO QDAY 01/09 Unknown History 12.5 mg tablet Allergy/AdvReac Type Severity Reaction Status Date / Time cortisone Allergy Severe Other Verified 01/29/25 05:54 Surgical History (Updated 01/24/25 @ 12:24 by Maggi Lockwood) Hx of surgical procedure History of partial knee replacement Hx of toe surgery Social History Smoking Status: Never smoker Review of Systems (Anesthesia) ROS Narrative System reviewed and no additional complaints, except as documented. Physical Exam Const alert, oriented x3 and average body habitus Resp normal respiratory effort, normal air movement and clear to auscultation bilaterally Cardio regular rate, regular rhythm, no murmurs and diaphoretic
[2025-01-29 06:28] VITALS: BP 152/84; PULSE 80; RESP 14; TEMP 36.3; O2SAT 100
--- NOTE | 2025-01-29 06:30 | EGD_PTH ---
PATIENT: AMOR CUEVAS LOC: EN U#:[id number] AGE/SX: 69/F ROOM: RE01/29/[address]: Dr. Branden Ware DO : 1955 BED: DIS: 01/29/2025 SPEC #: [id number] RECD: 01/29/25 11:40 STATUS: ROHITH REQ #: [id number] AYE: 01/29/25 06:[address]: Branden Ware DEPT: SURGICAL PATHOLOGY RECD BY: Minesh Walton ENTERED: 01/29/25 12:08 SP TYPE: EGD BIOPSY DINORAH DR: Dr. Uma Sanchez MD Tissues: A - Duodenum, NOS B - Gastric mucous membrane C - Gastric mucous membrane D - Esophagus, NOS Procedures: Immunohistochemical Stains Surgery Specimen Level IV HEADER OPERATION: EGD with biopsy PRE-OP DIAGNOSIS: Cough TISSUE SUBMITTED: A- Duodenum biopsy, B- Gastric antrum biopsy, C- Gastric body biopsy, D- Random esophagus biopsy MICROSCOPIC DIAGNOSIS A. Duodenum, biopsy: - Morris gland hyperplasia. - Negative for increased intraepithelial lymphocytes. B. Gastric antrum, biopsy: - Chronic gastritis. - IHC POSITIVE for H. pylori organisms. C. Gastric body, biopsy: - Active chronic gastritis. - IHC POSITIVE for H. pylori organisms. D. Esophagus, random, biopsy: - Squamous mucosa with reactive changes. - Negative for eosinophils. MICROSCOPIC DESCRIPTION Slides are reviewed. All matched controls reacted appropriately. These tests were developed and their performance characteristics determined by [facility]. They may not have been cleared or approved by the U.S. Food and Drug Administration. The FDA has determined that such clearance or approval is not necessary. The above immunohistochemical markers are viewed by the Pathologist. GROSS DESCRIPTION A. Received in fixative is one container labeled with the patient's name and designated "Duodenum biopsy." The specimen consists of two irregular fragments of ramirez tissue, each measuring 0.4 cm. The specimen is totally submitted in one cassette. B. Received in fixative is one container labeled with the patient's name and designated "Gastric antrum biopsy." The specimen consists of two irregular fragments of ramirez tissue that measure 0.2 and 0.5 cm. The specimen is totally submitted in one cassette. C. Received in fixative is one container labeled with the patient's name and designated "Gastric body biopsy." The specimen consists of two irregular fragments of ramirez tissue that measure 0.6 and 0.7 cm. The specimen is totally submitted in one cassette. D. Received in fixative is one container labeled with the patient's name and designated "Random esophagus biopsy." The specimen consists of multiple irregular fragments of ramirez tissue that in aggregate measure 0.9 x 0.3 x 0.1 cm. The specimen is totally submitted in one cassette. [place] 01/29/2025 CPT:58179m8,83816h0
--- NOTE | 2025-01-29 06:38 | PCM.HP.STD ---
HPI - General General Date of Admission: 01/29/25 Date of Service: 01/29/25 Chief Complaint: Cough HPI Narrative AMOR CUEVAS, is a 69 F who presents [ Chief Complaint: Cough MBS 11/22/2024 esophageal phase esophageal retention with retrograde flow through pharyngeal esophageal segment. Patient referred from speech-language pathologist due to abnormal modified barium swallow. Patient has been having a chronic cough over the past 2 years. It is worse with oral intake but can also happen randomly. She has been seen by pulmonology and ear nose and throat. She was told the cough may be due to her swallowing. She denies any symptoms of reflux. She was started on omeprazole for about a month and then discontinued because it was not helpful. She was recently started on an CAROLYN inhibitor but she denies worsening of her cough with this. Last colonoscopy was within 10 years and she has never had an EGD. [facility] Medical History Wears contact lenses Wears glasses History of Clostridium difficile infection Post-menopausal Cancer Alcohol use History of steroid therapy Arthritis Seizures Difficulty swallowing Non-smoker Chronic cough History of edema Hypertension Home Medications Medication Instructions Recorded Last Taken Type cholecalciferol (vitamin D3) 25 2,000 unit PO DAILY 06/07/15 Unknown History mcg (1,000 unit) tablet (Vitamin D3) biotin 1 mg capsule 1 mg PO DAILY 12/06/23 Unknown History ezetimibe 10 mg tablet 10 mg PO DAILY 12/06/23 Unknown History valacyclovir 1 gram tablet 1,000 mg PO BID PRN cold sores 12/06/23 Unknown History enalapril 5 mg-hydrochlorothiazide 1 tab PO QDAY 01/09/25 Unknown History 12.5 mg tablet Allergy/AdvReac Type Severity Reaction Status Date / Time cortisone Allergy Severe Other Verified 01/29/25 05:54 Surgical History Hx of surgical procedure History of partial knee replacement Hx of toe surgery Social History Smoking Status: Never smoker ROS Constitutional Constitutional: Denies fatigue, fever(s), poor appetite, weight gain or weight loss Gastrointestinal Gastrointestinal: Denies belching, bloating, change in bowel habits, change in stool character, chewing difficulty, coffee ground emesis, constipation, cramping, diarrhea, dyspepsia, dysphagia, early satiety, excessive flatus, fecal incontinence, heartburn, hematemesis, hematochezia, hemorrhoids, loose stools, melena, nausea, odynophagia, rectal bleeding, tenesmus, vomiting or weight changes Vital Signs Vital Signs Vital Signs: 01/29/25 05:55 01/29/25 05:55 01/29/25 06:28 Temperature 97.4 F L 97.4 F L Temperature Source Temporal Pulse Rate 80 80 Respiratory Rate 14 14 Respiratory Pattern Normal Blood Pressure 152/84 H 152/84 H Blood Pressure Mean 106 Blood Pressure Source Monitor Blood Pressure Position Semi-Fowlers Blood Pressure Location Left Arm Pulse Ox 100 100 Oxygen Delivery Method Room Air Room Air Weight Weight: 134 lb 7.712 oz Body Mass Index (BMI) 22.4 Physical Exam Const alert, oriented x3, no apparent distress and healthy appearing General Appearance: cooperative GI normal to inspection, nondistended, normoactive bowel sounds, soft to palpation, non-tender and non-distended Percussion: normal to percussion Rectal Exam: deferred Assessment & Plan Assessment/Plan (1) Cough: PLAN: Assessment and Plan Assessment and Plan (1) Cough: Status: Acute Plan: Amor is a 69-year-old female with past medical history of hyperlipidemia, cervical cancer and hypertension here today for evaluation of chronic cough. Patient with a cough for the past 2 years typically after oral intake. She has seen pulmonology and ear nose and throat for these symptoms but no etiology has been identified. Modified barium swallow with esophageal retention and retrograde flow. Symptoms were refractory to a 1 month prescription of omeprazole. Recommended EGD for evaluation of her upper GI tract. She may have abnormal esophageal motility, stricture or inflammation contributing to her symptoms. Will consider PPI or other treatments pending results. - EGD - Consider high-dose PPI - Follow-up after endoscopy ]
[2025-01-29 07:05] VITALS: BP 118/65; BP 152/84; PULSE 70; RESP 16; TEMP 36.3; O2SAT 99
--- NOTE | 2025-01-29 07:09 | OP.PROVAT_ITS ---
01/29/2025 Uma Sanchez Re : Upper GI endoscopy procedure for Brittni Andersen Laura This procedure was performed on Wednesday, January 29, 2025. My impressions and recommendations are as follows: Impressions : - Abnormal esophageal motility. Biopsied. - Erythematous mucosa in the gastric body and antrum. Biopsied. - Erythematous duodenopathy. Recommendations : - Discharge patient to home. - Resume previous diet. - Continue present medications. - Await pathology results. - Initiate empiric trial of proton pump inhibitor (PPI) therapy twice daily for presumed retroesophageal reflux to assess for symptom improvement. Recommend a 4-8 week course with follow-up. Amitriptyline 10 mg at night to relax the esophagus. - If no improvement on current regimen, consider further workup with 24-hour pH monitoring study to objectively quantify acid reflux. My findings are described in the full procedure note, which is enclosed. If I can be of further assistance, please feel free to contact me at . Sincerely, Branden Ware, 01/29/2025 7:08:46 AM This report has been signed electronically.
--- NOTE | 2025-01-29 07:09 | OP.EGD_ITS ---
Patient Name: Brittni Sweet Procedure Date: 01/29/2025 6:20 AM Date of : 1955 Age: 69 Procedure: Upper GI endoscopy Indications: Suspected non-erosive esophageal reflux Providers: Branden Ware DO Referring MD: Uma Sanchez Medicines: Monitored Anesthesia Care Patient Profile: This is a 69 year old female. Refer to note in patient chart for documentation of history and physical. Patient has symptoms of acute abdominal pain and chronic cough. Complications: No immediate complications. Procedure: Pre-Anesthesia Assessment: - Prior to the procedure, a History and Physical was performed, and patient medications and allergies were reviewed. The patient is competent. The risks and benefits of the procedure and the sedation options and risks were discussed with the patient. All questions were answered and informed consent was obtained. Patient identification and proposed procedure were verified by the physician in the pre-procedure area. Mental Status Examination: alert and oriented. Airway Examination: normal oropharyngeal airway and neck mobility. Respiratory Examination: clear to auscultation. CV Examination: normal. Prophylactic Antibiotics: The patient does not require prophylactic antibiotics. Prior Anticoagulants: The patient has taken no anticoagulant or antiplatelet agents except for NSAID medication. ASA Grade Assessment: II - A patient with mild systemic disease. After reviewing the risks and benefits, the patient was deemed in satisfactory condition to undergo the procedure. The anesthesia plan was to use monitored anesthesia care (MAC). Immediately prior to administration of medications, the patient was re-assessed for adequacy to receive sedatives. The heart rate, respiratory rate, oxygen saturations, blood pressure, adequacy of pulmonary ventilation, and response to care were monitored throughout the procedure. The physical status of the patient was re-assessed after the procedure. After obtaining informed consent, the endoscope was passed under direct vision. Throughout the procedure, the patient's blood pressure, pulse, and oxygen saturations were monitored continuously. The Endoscope was introduced through the mouth, and advanced to the third part of the duodenum. Small bowel enteroscopy was deemed necessary. The upper GI endoscopy was accomplished without difficulty. Scope In: 6:51:36 AM Scope Out: 6:56:22 AM Total Procedure Duration Time 0 hours 4 minutes 46 seconds Findings: Abnormal motility was noted at the cricopharyngeus. The cricopharyngeus was normal. There are extra peristaltic waves in the esophageal body. The distal esophagus/lower esophageal sphincter is spastic, but gives up passage to the endoscope. Tertiary peristaltic waves are noted. Biopsies were taken with a cold forceps for histology. Verification of patient identification for the specimen was done. Estimated blood loss was minimal. Patchy mildly erythematous mucosa without bleeding was found in the gastric body and in the gastric antrum. Biopsies were taken with a cold forceps for histology. Biopsies were taken with a cold forceps for Helicobacter pylori testing. Verification of patient identification for the specimen was done. Estimated blood loss was minimal. Patchy mildly erythematous mucosa without active bleeding and with no stigmata of bleeding was found in the entire duodenum. Impression: - Abnormal esophageal motility. Biopsied. - Erythematous mucosa in the gastric body and antrum. Biopsied. - Erythematous duodenopathy. Recommendation: - Discharge patient to home. - Resume previous diet. - Continue present medications. - Await pathology results. - Initiate empiric trial of proton pump inhibitor (PPI) therapy twice daily for presumed retroesophageal reflux to assess for symptom improvement. Recommend a 4-8 week course with follow-up. Amitriptyline 10 mg at night to relax the esophagus. - If no improvement on current regimen, consider further workup with 24-hour pH monitoring study to objectively quantify acid reflux. Procedure Code(s): --- Professional --- 26947, Small intestinal endoscopy, enteroscopy beyond second portion of duodenum, not including ileum; with biopsy, single or multiple CPT copyright 2021 [employer]. All rights reserved. The codes documented in this report are preliminary and upon research affiliate review may be revised to meet current compliance requirements. Branden Ware DO 01/29/2025 7:08:46 AM This report has been signed electronically. Number of Addenda: 0 Note Initiated On: 01/29/2025 6:20 AM
--- NOTE | 2025-01-29 07:09 | PCM.POST.ANE ---
Anesthesia: Postop Eval I Current Vital Signs Temperature: 97.3 F Pulse Rate: 67 Blood Pressure: 118/65 Respiratory Rate: 16 Pulse Ox: 99 Oxygen Delivery Method: Room Air Assessment Airway patent: Yes Spontaneous unlabored respirations: Yes Mental status: Awake and Calm nausea: No Vomiting: No Anesthesia Complication: No Fluid Hydration Crystalloid volume administer (ml): 400 Total IV fluid infused: 400 Progress Note Anesthesia document: Postop Eval 1 completed: Yes
[2025-01-29 07:10] VITALS: BP 118/65; BP 146/71; BP 152/84; PULSE 67; RESP 16; TEMP 36.3; O2SAT 100; O2SAT 99
[2025-01-29 07:15] VITALS: BP 140/81; BP 152/84; PULSE 70; RESP 16; TEMP 36.1; O2SAT 100
[2025-01-29 07:37] VITALS: BP 152/84
--- NOTE | 2025-01-29 07:57 | PCM.POSTANE2 ---
Anesthesia Postop Eval I Sum Postop Eval Completion status Anesthesia document: Postop Eval 1 completed: Yes Anesthesia Postop Eval I Summary Anesthesia Postop Eval I Summary: Anesthesia Postop Eval I: Assessment Summary Airway patent Yes 01/29/25 07:10 [email or web address] Spontaneous unlabored Yes 01/29/25 07:10 [email or web address] respirations Mental status Awake,Calm 01/29/25 07:10 [email or web address] nausea No 01/29/25 07:10 [email or web address] Vomiting No 01/29/25 07:10 [email or web address] Anesthesia Postop Eval I: Fluid Summary Crystalloid volume administer 400 01/29/25 07:10 [email or web address] (ml) Colloids volume administered ( ml) Blood Product volume administered (ml) Total IV fluid infused 400 01/29/25 07:10 [email or web address] Anesthesia Postop Eval I: Summary Notes Anesthesia Complication No 01/29/25 07:10 [email or web address] Anesthesia Complication Comment: Post-operative progress note Anesthesia: Postop Eval II Evaluation Mental status: Awake Pain Level: 0 nausea: No Vomiting: No Complications Anesthesia Complication: No
== END 2025-01-29 07:38 | disposition home or self-care (01) ==
LOC: EN 05:27 → AC 05:28
PROVIDERS: PCP Internal Medicine; Referring Provider Internal Medicine; Visit Provider Internal Medicine Gastroenterology
DX: K29.50 Unspecified chronic gastritis without bleeding (principal); R05.3 Chronic cough; I10 Essential (primary) hypertension; K21.9 Gastro-esophageal reflux disease without esophagitis
CPT/HCPCS: 44361; 88305; 88342; J2405

== ENCOUNTER → 2025-03-02 | Day surgery (SDC) | payer MEDICARE, BC, SELFPAY ==
[2025-03-02] MEDS: Lidocaine Jelly 2% 20 ML Syringe (URO-JET) 1 APPLIC (07:50)
[2025-03-02 07:58] VITALS: BP 145/77; PULSE 75; RESP 16; TEMP 37; O2SAT 100
== END | disposition home or self-care (01) ==
LOC: EN 07:37
PROVIDERS: PCP Internal Medicine; Referring Provider Internal Medicine; Visit Provider Internal Medicine Gastroenterology
PROC: F00ZJWZ Instrumental Swallowing and Oral Function Assessment using Swallowing Equipment (ICD-10-PCS; CPT 43235; principal; 2025-03-02 07:25)
DX: K22.2 Esophageal obstruction (principal)
CPT/HCPCS: 91010

== ENCOUNTER → 2025-03-13 | Outpatient (CLI) | payer MEDICARE, BC, SELFPAY ==
[2025-03-14 11:08] LABS: H. PYLORI STOOL AG Negative (Negative)
== END | disposition home or self-care (01) ==
LOC: LABSPEC 11:19
PROVIDERS: PCP Internal Medicine; Referring Provider Student in an Organized Health Care Education/Training Program; Visit Provider Student in an Organized Health Care Education/Training Program
DX: A04.8 Other specified bacterial intestinal infections (principal)
CPT/HCPCS: 87338

== ENCOUNTER → 2025-03-21 | Outpatient (CLI) | payer MEDICARE, BC, SELFPAY ==
[2025-03-21 10:32] LABS: Hematocrit 39.7 % (37-47); Hemoglobin 13.7 g/dL (12.0-15.0); Immature Granulocytes Count 0.010 X10^3/uL (0.0-0.0); Mean Corp Hgb Conc 34.5 g/dL (32-36); Mean Corpuscular Volume 91.3 fL (81-99); Mean Platelet Vol. 9.7 fl (6.2-12.0); NRBC Flagged by Analyzer 0 % (0-5); Platelet Count 273 K/mm3 (150-450); RBC Distribution Width CV 13.5 % (11.6-14.6); RBC Distribution Width SD 45.8 fl (35.1-43.9); Red Blood Count 4.35 M/mm3 (4.2-5.4); White Blood Count 4.5 K/mm3 (4.4-11.0)
[2025-03-21 10:49] LABS: Creatinine, Urine (random) 64.40 mg/dL (28.00-217.00); Microalbumin,Random Urine < 12.0 mg/L (<20 mg/L)
[2025-03-21 11:16] LABS: AST(SGOT) 34 U/L (<=31); Alanine Aminotransfer ALT/SGPT 33 U/L (<=34); Albumin, Serum 4.6 g/dL (3.4-4.8); Alkaline Phosphatase 51 U/L (35-104); Anion Gap 10 (7-18); BUN 15 mg/dL (4-19); BUN/Creat Ratio 22.2 RATIO (10-20); Calcium,Total 9.4 mg/dL (7.6-11.0); Carbon Dioxide 26.8 mmol/L (20.0-29.0); Chloride 93 mmol/L (96-106); Cholesterol 276 mg/dL (<=200); Globulin 2.8 g/dL (2.2-4.2); Glucose 115 mg/dL (70-99); Low Density Lipoprotein Calc. 169 mg/dL; Potassium 4.2 mmol/L (3.5-5.1); Triglycerides 55 mg/dL; Very Low Density Lipoprotein 11 mg/dL (5-40); cholesterol:hdl ratio screen 2.78
== END | disposition home or self-care (01) ==
LOC: LAB 09:54
PROVIDERS: PCP Internal Medicine; Referring Provider Internal Medicine; Visit Provider Internal Medicine
DX: I10 Essential (primary) hypertension (principal)
CPT/HCPCS: 36415; 80053; 80061; 82043; 82570; 85025